=== PATIENT | female | born 1950 | race Caucasian/White ===

== ENCOUNTER → 2019-08-02 14:04 | Outpatient (CLI) | payer MEDICARE, MEDICAID, SELFPAY ==
--- NOTE | 2019-08-02 | DI.ECHO.S_ITS ---
[place] [facility]---------+ [facility] +---------+ : : [address] : : : : [id number] : : : : Phone: [phone] Echocardiogram Report + + :Name: ALANA DREW Study Date: 08/02/2019 Height: 65 in : :[facility] Weight: 350 lb : : Gender: Female BSA: 2.5 m2 : :: 1950 Age: 68 yrs BP: 122/68 mmHg: :Reason For Study: hypertension : :Ordering Physician: Kush Ferrera : :Liana Performed By: Hermila Ward : :Referring: KUSH GAINES : + + Interpretation Summary Technically difficult study limiting LV endothelial and valve visualization. 1) Normal left ventricular size, thickness, and systolic function (EF 60-65%). 2) Right ventricle is not well visualization but is appears to have mildly reduced function in suboptimal windows. 3) No significant valvular abnormalities. 4) The right ventricular systolic pressure is estimated to be at least 30 mmHg based on an estimated right atrial pressure of 3 mm Hg. 5) Compared to the Echo done 01/30/2018 @ [facility], RVSP has decreased from 48mmHg to 30mmHg. Procedure: A two-dimensional transthoracic echocardiogram with color flow and Doppler was performed. The study quality was technically difficult. A contrast injection of Definity was performed to improve assessment of LV function. The injection was performed through an intravenous line in the left arm. Definity contrast used after patient education and consent. Patient denied any symptoms following the use of Definity. The patient was in normal sinus rhythm during the exam. Left Ventricle: The left ventricle is normal in size and wall thickness. The ejection fraction is estimated to be 60-65%. Left ventricular systolic function is normal. There are no obvious focal wall motion abnormalities noted but poor endocardial definition reduces the sensitivity for the detection of such. Right Ventricle: The right ventricle is not well visualized. Right ventricular systolic function is mildly reduced. Atria: The left atrial size is normal. Right atrium not well visualized. Mitral Valve: The mitral valve leaflets appear mildly thickened, but open well. There is mild mitral annular calcification. Aortic Valve: The aortic valve is trileaflet. The aortic valve opens well. There is no aortic valve stenosis. No aortic regurgitation is present. Tricuspid Valve: The tricuspid valve is not well visualized. The right ventricular systolic pressure is estimated to be at least 30 mmHg based on an estimated right atrial pressure of 3 mm Hg. There is trace tricuspid regurgitation. Pulmonic Valve: The pulmonic valve is not well visualized. There is no pulmonic valvular regurgitation. Great Vessels: The aortic root is not well visualized. The ascending aorta could not be visualized. The aortic arch is normal in size. The IVC is of normal diameter and collapses greater than 50% with a sniff. This suggests a low right atrial pressure of 3 mm Hg. Pericardium/ Pleura There is no pericardial effusion. There is no pleural effusion. MMode/2D Measurements & Calculations LVIDd: 4.1 cm LVOT diam: 2.1 cm LVIDs: 2.9 cm Ao Arch Diam (Prox Trans): 2.8 cm FS: 27.8 % EPSS: 0.88 cm IVSd: 1.0 cm LVPWd: 0.95 cm LV perdomo. diameter/BSA (cm/m^2): 1.6 LV sys. diameter/BSA (cm/m^2): 1.2 LA A2 area: 19.1 cm2 TAPSE: 1.7 cm LA A4 area: 17.8 cm2 LA length (vol): 5.4 cm LA vol: 53.1 ml LA vol index: 21.2 ml/m2 Doppler Measurements & Calculations Ao V2 max: 123.5 cm/sec LVOT Max Souleymane: 101.6 cm/sec Ao V2 mean: 89.4 cm/sec LV V1 max P.1 mmHg Ao max P.1 mmHg LV V1 VTI: 14.6 cm Ao mean P.5 mmHg LUZ ELENA(I,D): 3.0 cm2 Ao V2 VTI: 17.6 cm LUZ ELENA(V,D): 3.0 cm2 sev ratio: 0.83 LUZ ELENA indexed to BSA (cm^2/m^2): 1.2 MV E max souleymane: 81.6 cm/sec TR max souleymane: 259.1 cm/sec MV A max souleymane: 84.3 cm/sec TR max P.8 mmHg MV E/A: 0.97 PA V2 max: 105.9 cm/sec Med Peak E' Souleymane: 6.6 cm/sec PA V2 mean: 66.0 cm/sec E/E' med: 12.3 PA mean P.1 mmHg Lat Peak E' Solueymane: 9.0 cm/sec PA pr(Accel): 37.9 mmHg E/E' lat: 9.1 E/e' average: 10.7 MV dec time: 0.24 sec SV(LVOT): 52.9 ml Reading Physician:06:05 PM
== END ==
PROVIDERS: Family Provider Physician Assistant; Referring Provider Internal Medicine Cardiovascular Disease; Visit Provider Internal Medicine Cardiovascular Disease
DX: I27.20 Pulmonary hypertension, unspecified (principal)
CPT/HCPCS: 93306; Q9957

== ENCOUNTER 2020-08-03 21:20 | Inpatient (IN) | payer MEDICARE, MEDICAID, SELFPAY ==
[2020-08-03] VITALS (10 sets, daily range): BP systolic 120–149; BP diastolic 73–83; PULSE 101–107; RESP 15–22; TEMP 36.8; O2SAT 93–97; BMI 62.4
--- NOTE | 2020-08-03 21:51 | DI.CT.S_ITS ---
PROCEDURE: CT ANGIO CHEST PE PROTOCOL INDICATIONS: sob TECHNIQUE: After the administration of intravenous contrast, 2 mm thick sections acquired from the pulmonary apices to the posterior costophrenic angles. 3-dimensional maximum intensity projection (MIP) coronal and sagittal reformats were then acquired through the thorax. For radiation dose reduction, the following was used: automated exposure control, adjustment of mA and/or kV according to patient size. COMPARISON: [facility], CT, CT ANGIO CHEST PE, 05/27/2015, 22:44. FINDINGS: Image quality: Limited given severe respiratory motion. Pulmonary arteries: Pulse is limited for evaluation of pulmonary embolus. The Hounsfield units within the main pulmonary artery are 128 Hounsfield units. There is no central pulmonary embolus. The main pulmonary artery is normal in caliber with likely mild dilation of the main pulmonary arteries measuring 2.6 centimeters on the right and 2.4 centimeters on the left which may be related to pulmonary hypertension. This is grossly unchanged from comparison. Lungs and pleura: Limited given severe respiratory motion. There is trace left-sided pleural fluid. There is predominantly dependent and basilar atelectasis and scattered densities. No pneumothorax. Low lung volumes. Mediastinum: Heart size is normal, without pericardial effusion. No evidence of right heart strain. Moderate multilevel coronary vascular calcifications. Mitral annular calcifications. Mildly prominent and slightly enlarged mediastinal lymph nodes with a right paratracheal lymph node measuring 1.0 centimeter in short axis diameter, unchanged. Thoracic aorta is normal in caliber and enhancement. Esophagus is normal in caliber, without hiatal hernia. Bones and chest wall: No suspicious bony lesions. Ribs and thoracic spine appear intact throughout. Thyroid gland is unremarkable. No axillary or supraclavicular adenopathy. Abdomen: Visualized upper abdominal solid organs appear normal in the early arterial phase of enhancement. Questionable mild intrahepatic ductal dilation. IMPRESSION: No central pulmonary embolus, however enhancement of the pulmonary arteries is inadequate for evaluation of pulmonary embolus along with severe respiratory motion artifact. Repeat examination in appropriate phase of imaging versus V/Q scan as clinically warranted. Scattered predominantly basilar densities most prominent in the left lower lobe likely representing atelectasis. Superimposed pneumonia not completely excluded. Trace left-sided pleural effusion. Questionable intrahepatic ductal dilation. Recommend correlation with lab values to exclude obstruction. Stable nonspecific mediastinal adenopathy. Moderate multi-vessel coronary vascular calcifications. No significant discrepancy from preliminary report. Dictated by: George Hernandez D.O. on 08/04/2020 at 7:17 Approved by: George Hernandez D.O. on 08/04/2020 at 7:29
[2020-08-03 22:07] LABS: Add Manual Diff / Slide Review NO; Basophils Absolute Auto 100 /uL (0-100); Basophils Percent Auto 0.4 % (0-2); Eosinophils Absolute Auto 400 /uL (0-450); Eosinophils Percent Auto 2.7 % (2-4); Hematocrit 38.5 % (36-46); Hemoglobin 12.4 g/dL (12.0-16.0); Lymphocytes Absolute Auto 1200 /uL (1100-4500); Lymphocytes Percent Auto 9.1 % (25-40); Mean Corpuscular HGB Conc 32.3 % (30-36); Mean Corpuscular Hemoglobin 29.7 PG (26-34); Monocytes Absolute Auto 1200 /uL (0-900); Monocytes Percent Auto 8.8 % (3-14); Neutrophils Absolute Auto 10400 /uL (1500-7000); Platelet Count 314 X10^3/uL (150-400); Red Blood Cell Count 4.18 X10^6/uL (4.0-5.2); Red Cell Distribution Width 13.8 % (11.6-14.8); White Blood Cell Count 13.2 X10^3/uL (4.5-11.0)
[2020-08-03 22:15] LABS: INR 1.2 (0.9-1.3); Prothrombin Time 13.1 SECONDS (10.1-12.7)
[2020-08-03 22:17] LABS: PTT Partial Thromboplastin Tim 37 SECONDS (26.4-36.2)
[2020-08-03 22:18] LABS: Lactate (Lactic Acid) 0.8 mmol/L (0.7-2.1)
[2020-08-03 22:19] LABS: Alanine Aminotransferase 32 IU/L (<35); Albumin 3.6 g/dL (3.5-5.0); Alkaline Phosphatase 136 U/L (38-126); Aspartate Aminotransferase 47 IU/L (14-36); BUN Creatinine Ratio 26.6 (6-22); Bilirubin Total 0.5 mg/dL (0.2-1.3); Blood Urea Nitrogen 21 mg/dL (7-17); Calcium 9.2 mg/dL (8.4-10.2); Carbon Dioxide 31 mmol/L (22-32); Chloride 105 mmol/L (98-107); Creatine Kinase 103 U/L (30-135); Estimated Glomerular Filt Rate > 60.0 mL/min (>60); Globulin 3.5 g/dL (1.7-4.1); Glucose 133 mg/dL (80-110); HEMOLYSIS < 15 (0-50); Magnesium 1.3 mg/dL (1.6-2.3); Sodium 139 mmol/L (137-145); Total Protein 7.1 g/dL (6.3-8.2)
[2020-08-03 22:20] LABS: Potassium 5.5 mmol/L (3.4-5.1)
--- NOTE | 2020-08-03 22:26 | ED.SOB ---
HPI - SOB/Dyspnea General Chief Complaint: Weakness Stated Complaint: Weakness Time Seen by Provider: 08/03/20 21:50 Source: patient and EMS Mode of arrival: EMS Limitations: no limitations History of Present Illness HPI Narrative: Patient is a 69-year-old female with multiple comorbidities including diabetes, morbid obesity presenting today with increasing cough and shortness of breath. [facility]. She is generally weak and had a fall yesterday. Says it is becoming more difficult for her to walk. She is certainly more sedentary. She is on home O2 for sleep apnea and COPD. She has not needed any more oxygen. She denies fever chills. But she does have a bronchospastic cough here in the emergency department. She is quite convinced that she has pneumonia again she denies fever or chills. She actually states that she has had this cough ongoing for 2 weeks. She does have AIDS and help at home. [facility] records report that social work was involved in her care looking at technician terminal and repeater care facilities for her. She certainly does not qualify from the emergency department. MD Complaint: shortness of breath Related Data Home oxygen amount: 3 liters Allergies Allergy/AdvReac Type Severity Reaction Status Date / Time cephalexin Allergy Verified 08/03/20 21:40 codeine Allergy Verified 08/03/20 21:41 morphine Allergy Verified 08/03/20 21:40 Penicillins Allergy Verified 08/03/20 21:35 Review of Systems Review of Systems ROS Unobtainable: All systems reviewed & are unremarkable except as noted in HPI and below Constitutional Constitutional: Denies chills, Denies fever(s), Denies frequent falls, Denies lethargy and Denies weakness ENT Ears, Nose, Mouth, and Throat: Denies dizziness Cardiovascular Cardiovascular: Denies chest pain, Denies syncope, Denies irregular heart rhythm, Denies lightheadedness, Denies palpitations, Reports dyspnea and Denies orthopnea Respiratory Respiratory: Reports cough and Reports dyspnea Gastrointestinal Gastrointestinal: Denies abdominal pain, Denies change in bowel habits, Denies diarrhea, Denies nausea and Denies vomiting Musculoskeletal Musculoskeletal: Denies back pain and Reports myalgias Integumentary/Breasts Skin/Breast: Denies pruritus, Denies erythema, Denies rash and Denies wounds Neurologic Neurologic: Denies dizziness, Denies syncope, Denies frequent falls and Denies weakness Endocrine Endocrine: Denies palpitations Patient History Medical History Anxiety CHF (congestive heart failure) COPD (chronic obstructive pulmonary disease) Depression GERD (gastroesophageal reflux disease) Hiatal hernia Hyperlipidemia Hypertension Migraine Osteoarthritis Peripheral neuropathy Sleep apnea Type 2 diabetes mellitus Social History household members: family Smoking Status: Former smoker alcohol intake: never Smoking Status: Never smoker Substance Use Type: does not use Exam Initial Vital Signs Initial Vital Signs: Vital Signs Respiratory Rate 22 08/03/20 21:26 Blood Pressure 130/83 08/03/20 21:26 GENERAL: Alert 69-year-old female coughing BMI 62 HEENT: Head atraumatic,EOMI, pupils reactive, face symmetric, moist mucous membranes CARDIOVASCULAR: Regular rate and rhythm without murmurs, rubs or gallops. RESPIRATORY: Breath sounds equal bilaterally, no wheezes rales or rhonchi. Bronchospastic cough ABDOMEN: Soft, nontender. Normoactive bowel sounds all 4 quadrants. No guarding or rebound. EXTREMITIES: Normal range of motion, no clubbing or edema. Neurovascularly intact NEUROLOGICAL: Alert and oriented x4. Normal speech Cranial nerves II through XII grossly intact. SKIN: Warm, dry, no laceration, no petechiae, no rashes or lesions. Course Orders Ordered: ED Orders 08/03/20 21:30 COVID19 - ADMIT (BAR PILOT swab/PCR) Stat 08/03/20 21:50 Consult to Respiratory Therapy Evaluate & Treat EKG-12 Lead Stat 08/03/20 21:51 CT angio chest PE protocol Stat 08/03/20 22:00 Complete Blood Count AUTO DIFF Stat Comprehensive Metabolic Panel Stat Lactate (Lactic Acid) Stat Magnesium Stat NT-proBNP (BNP-Adult 18+) Stat Partial Thromboplastin Time Stat Procalcitonin Stat Prothrombin Time INR Stat Troponin & CK Cardiac Panel Stat 08/03/20 22:12 Blood Culture Stat Acetaminophen (Acetaminophen 325 Mg Tablet) 650 mg PO Q6HR PRN PRN Reason: Fever/Mild Pain (1-3) Al Hydrox/Mg Hydrox/Simethicone (Mag Hydrox/Alum/Simeth 30 Ml Udc) 30 ml PO Q6HR PRN PRN Reason: Dyspepsia Albuterol (Albuterol 2.5 Mg/3 Ml Neb (Adult)) 2.5 mg INH [id number] PRN PRN Reason: Shortness Of Breath Or Wheezing Albuterol/Ipratropium (Albuterol/Ipratropium 3 Ml Ampul) 3 ml INH [id number] [facility] Amlodipine Besylate (Amlodipine 5 Mg Tablet) 5 mg PO DAILY [facility] Atorvastatin Calcium (Atorvastatin 20 Mg Tablet) 40 mg PO BEDTIME [facility] Bisacodyl (Bisacodyl 10 Mg Supp) 10 mg TX DAILY PRN PRN Reason: Constipation Budesonide (Budesonide 0.5 Mg/2 Ml Neb) 0.5 mg INH RTBID [facility] Calcium Carbonate (Calcium Carbonate 500 Mg Tab) 1,000 mg PO Q4HR PRN PRN Reason: Dyspepsia Docusate Sodium (Docusate 100 Mg Capsule) 100 mg PO BID [facility] Duloxetine HCl (Duloxetine 30 Mg Capsule) 60 mg PO DAILY [facility] Enoxaparin Sodium (Enoxaparin 40 Mg/0.4 Ml Syringe) 40 mg SUBCUT DAILY [facility] Furosemide (Furosemide 20 Mg/2 Ml Vial) 20 mg IV DAILY [facility] Guaifenesin (Guaifenesin Er 600 Mg Tab) 600 mg PO BID [facility] Magnesium Sulfate (Magnesium Sulfate) 2 gm in 50 mls @ 25 mls/hr IV NOW ONE Stop: 08/04/20 03:48 Azithromycin 500 mg/ Dextrose 250 mls @ 250 mls/hr IV Q24H LADY Stop: 08/06/20 02:46 Insulin Human Lispro (Insulin Lispro 100 Unit/Ml 3ml Vial) 0 unit SUBCUT ACHS [facility]; Protocol Lisinopril (Lisinopril 20 Mg Tablet) 20 mg PO DAILY [facility] Naloxone HCl (Naloxone 0.4 Mg/Ml Vial) 0.2 mg IV Q2MIN PRN PRN Reason: Opiate Reversal Nortriptyline HCl (Nortriptyline Hcl 25 Mg Capsule) 50 mg PO BEDTIME [facility] Ondansetron HCl (Ondansetron 4 Mg/2 Ml Inj) 4 mg IV Q8HR PRN PRN Reason: Nausea And Vomiting Pantoprazole Sodium (Pantoprazole 40 Mg Vial) 20 mg IV DAILY [facility] Discontinued Medications Albuterol/Ipratropium (Albuterol/Ipratropium 3 Ml Ampul) 3 ml INH NOW ONE Stop: 08/03/20 21:51 Last Admin: 08/03/20 23:20 Dose: 3 ml Documented by: JEANCARLOS Guaifenesin (Guaifenesin Er 600 Mg Tab) 600 mg PO Q12HR PRN PRN Reason: Cough Sodium Chloride (Normal Saline 0.9%) 1,000 mls @ 75 mls/hr IV CONT LADY Pantoprazole Sodium (Pantoprazole 40 Mg Vial) 40 mg IV DAILY LADY Vital Signs Vital signs: Vital Signs - 8 hr 08/03/20 21:26 08/03/20 21:27 08/03/20 21:29 Temperature 98.2 F Pulse Rate 107 H 104 H Respiratory Rate 22 22 Blood Pressure 130/83 121/76 Pulse Oximetry 93 93 08/03/20 21:30 08/03/20 21:31 08/03/20 22:00 Temperature Pulse Rate 104 H 106 H 105 H Respiratory Rate Blood Pressure 121/76 120/75 Pulse Oximetry 96 97 96 08/03/20 22:30 08/03/20 23:13 08/03/20 23:20 Temperature Pulse Rate 101 H 105 H 103 H Respiratory Rate 15 20 Blood Pressure 149/73 H Pulse Oximetry 96 94 95 08/03/20 23:30 08/04/20 00:00 08/04/20 00:30 Temperature Pulse Rate 103 H 102 H 113 H Respiratory Rate 22 26 H 30 H Blood Pressure Pulse Oximetry 94 94 MDM - SOB/Dyspnea Lab Data Attestation: I reviewed the patient's lab results. Result diagrams: 08/03/20 22:00 08/03/20 22:00 Labs: Lab Results 08/03/20 08/03/20 08/03/20 Range/Units 21:30 22:00 22:00 WBC 13.2 H (4.5-11.0) X10^3/uL RBC 4.18 (4.0-5.2) X10^6/uL Hgb 12.4 (12.0-16.0) g/dL Hct 38.5 (36-46) % MCV 92.0 (80-100) fL MCH 29.7 (26-34) PG MCHC 32.3 (30-36) % RDW 13.8 (11.6-14.8) % Plt Count 314 (150-400) X10^3/uL Neut % (Auto) 79.0 H (50-75) % Lymph % (Auto) 9.1 L (25-40) % Lares % (Auto) 8.8 (3-14) % Eos % (Auto) 2.7 (2-4) % Baso % (Auto) 0.4 (0-2) % Neut # (Auto) 43858 H (9811-7493) /uL Lymph # (Auto) 1200 (8208-7002) /uL Lares # (Auto) 1200 H (0-900) /uL Eos # (Auto) 400 (0-450) /uL Baso # (Auto) 100 (0-100) /uL PT 13.1 H (10.1-12.7) SECONDS INR 1.2 (0.9-1.3) APTT 37 H (26.4-36.2) SECONDS Sodium (137-145) mmol/L Potassium (3.4-5.1) mmol/L Chloride (98-107) mmol/L Carbon Dioxide (22-32) mmol/L BUN (7-17) mg/dL Creatinine (0.52-1.04) mg/dL Estimated GFR (>60) mL/min BUN/Creatinine Ratio (6-22) Glucose (80-110) mg/dL Lactate (0.7-2.1) mmol/L Calcium (8.4-10.2) mg/dL Magnesium (1.6-2.3) mg/dL Total Bilirubin (0.2-1.3) mg/dL AST (14-36) IU/L ALT (<35) IU/L Alkaline Phosphatase (38-126) U/L Total Creatine Kinase (30-135) U/L CK-MB (CK-2) (<2.37) ng/mL CK-MB (CK-2) Rel Index (1.5-5.0) % Troponin I (0.01-0.034) ng/mL NT-Pro-B Natriuret Pep (<125) pg/mL Total Protein (6.3-8.2) g/dL Albumin (3.5-5.0) g/dL Globulin (1.7-4.1) g/dL Albumin/Globulin Ratio (1.0-2.8) Procalcitonin (<0.5) ng/mL SARS-CoV-2 (PCR) Negative (Negative) 08/03/20 08/03/20 Range/Units 22:00 22:00 WBC (4.5-11.0) X10^3/uL RBC (4.0-5.2) X10^6/uL Hgb (12.0-16.0) g/dL Hct (36-46) % MCV (80-100) fL MCH (26-34) PG MCHC (30-36) % RDW (11.6-14.8) % Plt Count (150-400) X10^3/uL Neut % (Auto) (50-75) % Lymph % (Auto) (25-40) % Lares % (Auto) (3-14) % Eos % (Auto) (2-4) % Baso % (Auto) (0-2) % Neut # (Auto) (3802-7194) /uL Lymph # (Auto) (1901-8720) /uL Lares # (Auto) (0-900) /uL Eos # (Auto) (0-450) /uL Baso # (Auto) (0-100) /uL PT (10.1-12.7) SECONDS INR (0.9-1.3) APTT (26.4-36.2) SECONDS Sodium 139 (137-145) mmol/L Potassium 5.5 H (3.4-5.1) mmol/L Chloride 105 (98-107) mmol/L Carbon Dioxide 31 (22-32) mmol/L BUN 21 H (7-17) mg/dL Creatinine 0.79 (0.52-1.04) mg/dL Estimated GFR > 60.0 (>60) mL/min BUN/Creatinine Ratio 26.6 H (6-22) Glucose 133 H (80-110) mg/dL Lactate 0.8 (0.7-2.1) mmol/L Calcium 9.2 (8.4-10.2) mg/dL Magnesium 1.3 L (1.6-2.3) mg/dL Total Bilirubin 0.5 (0.2-1.3) mg/dL AST 47 H (14-36) IU/L ALT 32 (<35) IU/L Alkaline Phosphatase 136 H (38-126) U/L Total Creatine Kinase 103 (30-135) U/L CK-MB (CK-2) 1.33 (<2.37) ng/mL CK-MB (CK-2) Rel Index 1.3 L (1.5-5.0) % Troponin I < 0.012 (0.01-0.034) ng/mL NT-Pro-B Natriuret Pep 438 H (<125) pg/mL Total Protein 7.1 (6.3-8.2) g/dL Albumin 3.6 (3.5-5.0) g/dL Globulin 3.5 (1.7-4.1) g/dL Albumin/Globulin Ratio 1.0 (1.0-2.8) Procalcitonin 0.17 (<0.5) ng/mL SARS-CoV-2 (PCR) (Negative) Imaging Data CT scan - chest: Radiologist's Impression: Preliminary report. No gross central pulmonary embolism but inadequate enhancement of pulmonary arteries with severe respiratory motion artifact. Close follow-up inappropriate phase of imaging or V/Q scan is clinically indicated. Trace left pleural fluid. Scattered particulate dependent densities most prominent left lower lobe probably atelectasis superimposed pneumonia less likely but not excluded ECG Data Attestation: I personally reviewed and interpreted this ECG as follows: Prior ECG tracings: not available for review Interpretation: Sinus rhythm rate 106 p.r. interval 160 Q are S [address] changes or T-wave inversions MDM Narrative Medical decision making narrative: Patient states that she is unable to ambulate. She has had significant increase in weakness over the past couple of weeks weakness got much worse yesterday when she fell and was evaluated at [facility]. She says that she went home and laid in bed. She does have home healthcare they assisted her to the restroom without was only 1 time. She is unable to get up without assistance. 911 was called the medics helped her to the restroom before she came to the ED. attempted to get her to stand up in the emergency department was unsuccessful. At this time patient does not have 24 hour care at home. She will likely need long-term care facility. At this time no cause for her increasing shortness of breath or chronic cough. No sign of infection Pepito VALENZUELA updated patient's symptoms test results accepts patient for observation Discharge Plan Departure Patient Disposition: Admitted as Observation Clinical Impression: Chronic cough, Inability to walk Admit Date/Time: 08/04/20 00:58 Admit Provider: Sandor Cerna
[2020-08-03 22:31] LABS: NT-proBNP (BNP-Adult 18+) 438 pg/mL (<125); Troponin I < 0.012 ng/mL (0.01-0.034)
[2020-08-03 22:35] LABS: CKMB % Relative Index 1.3 % (1.5-5.0); Creatine Kinase MB 1.33 ng/mL (<2.37)
[2020-08-03 22:36] LABS: Procalcitonin 0.17 ng/mL (<0.5)
[2020-08-03 22:56] LABS: COVID19 - ADMIT (NP swab/PCR) Negative (Negative)
[2020-08-03] MEDS: ALBUTEROL/IPRATROPIUM 3 ML AMPUL INH (23:20)
[2020-08-04] VITALS (14 sets, daily range): BP systolic 123–175; BP diastolic 47–84; PULSE 101–113; RESP 14–30; TEMP 35.9–36.6; O2SAT 92–96; BMI 62.4
--- NOTE | 2020-08-04 01:43 | PM.HP.1 ---
History of Present Illness History of Present Illness Date Patient Seen: 08/04/20 Time Patient Seen: 01:58 Chief complaint: Weakness Narrative: Ms. Mayra Lara is a 69-year-old super morbidly obese female with a past medical history significant for COPD on home O2 at 3 liters/minute, congestive heart failure, SWATHI, type 2 diabetes with neuropathy, hypertension, hyperlipidemia, hiatal hernia, GERD, anxiety and depression presents to the ER with worsening cough and shortness of breath. The patient was seen at [facility] yesterday for cough and shortness of breath and discharged to home. Today the patient feels that she is more short of breath with worsening cough and weakness precipitating 2 recent falls. The patient has a home health aide that will help her at home. She called [facility] [place] fire Department responded get her to the toilet and subsequently to the ER at [facility] for further evaluation. The patient states that she is on home oxygen at 3 liters/minute is not required increasing flow. She endorses a cough that has been present for 2 weeks. The patient denies fevers or chills, headaches or dizziness, has no nasal congestion or sore throat. She denies chest pain or palpitations. She has shortness of breath at rest with dry nonproductive. She denies abdominal pain, changes in bowel or bladder habits. Upon arrival to the ER the patient has a temperature 98.2?, heart rate of 104, blood pressure 121/76 with a respirations of 22 saturating 96% on 4 liters/minute of oxygen. A chest CT is obtained which finds no gross pulmonary embolism however notes an adequate enhancement of pulmonary arteries with severe respiratory motion artifact. Trace left pleural fluid, scattered fatigue dependent densities was probably left lower lobe please to be atelectasis and less likely pneumonia. On laboratory analysis the patient has white count of 13.2 with elevated neutrophils at 10,400, hemoglobin is 4 and hematocrit is 38.5 and platelets are 314. She has a PT of 13 1, INR 1 2 and a PTT of 37. On chemistry has an elevated potassium of 5.5 elevated BUN at 21 with a creatinine 0.79 with a BUN creatinine ratio of 26.6. Her nonfasting glucose is 133. Her magnesium is 1.3. She has a total CK of 103 with a CK-MB of 1.334 index of 1.3. Her troponin is less than 0.012. She has an elevated proBNP at 438. Her procalcitonin is 0.17. Her COVID screening is negative. The patient is admitted to the hospital for exacerbation COPD and acute bronchitis and generalized weakness unable to return safely to her home setting. Patient History Medical History Anxiety Asthma CHF (congestive heart failure) COPD (chronic obstructive pulmonary disease) Depression GERD (gastroesophageal reflux disease) Hiatal hernia Hyperlipidemia Hypertension Migraine Osteoarthritis Peripheral neuropathy Sleep apnea Type 2 diabetes mellitus Surgical History (Updated 08/04/20 @ 03:00 by NICOLAS Hernandez) No history of previous surgery Family & Social History Family History (Updated 08/04/20 @ 03:02 by NICOLAS Hernandez) Father Cardiovascular disease Mother CVA (cerebral vascular accident) Brother Sepsis Safety & Behavioral: Feels Safe in Current Yes Environment Been Physically Hurt or No Threatened By a Person Tobacco & Substance use: Smoking Status Never smoker Substance Use Type does not use Meds Home Medications and Allergies Allergies Allergy/AdvReac Type Severity Reaction Status Date / Time cephalexin Allergy Verified 08/03/20 21:40 codeine Allergy Verified 08/03/20 21:41 morphine Allergy Verified 08/03/20 21:40 Penicillins Allergy Verified 08/03/20 21:35 Review of Systems Review of Systems ROS: Yes All systems reviewed with the patient and are negative except as otherwise documented Exam Vital Signs (past 8 hours): - 08/03/20 21:26 08/03/20 21:27 08/03/20 21:29 Temperature 98.2 F Pulse Rate 107 H 104 H Respiratory Rate 22 22 Blood Pressure 130/83 121/76 Pulse Oximetry 93 93 08/03/20 21:30 08/03/20 21:31 08/03/20 22:00 Temperature Pulse Rate 104 H 106 H 105 H Respiratory Rate Blood Pressure 121/76 120/75 Pulse Oximetry 96 97 96 08/03/20 22:30 08/03/20 23:13 08/03/20 23:20 Temperature Pulse Rate 101 H 105 H 103 H Respiratory Rate 15 20 Blood Pressure 149/73 H Pulse Oximetry 96 94 95 08/03/20 23:30 08/04/20 00:00 08/04/20 00:30 Temperature Pulse Rate 103 H 102 H 113 H Respiratory Rate 22 26 H 30 H Blood Pressure Pulse Oximetry 94 94 08/04/20 01:00 Temperature Pulse Rate 104 H Respiratory Rate 14 Blood Pressure Pulse Oximetry 94 Oxygen Delivery Method Nasal Cannula Oxygen Flow Rate 4 Narrative Exam Narrative: GENERAL APPEARANCE: well developed, super morbidly obese female, BMI 61. Who is hyperkinetic and restless with frequent wet cough. HEENT: Normocephalic, right eyelid ptosis, blind right eye, left pupil reactive, no sinus tenderness to percussion, no rhinorrhea, mucous membranes are moist and pink. NECK/THYROID: neck supple, no JVD, no thyromegaly, trachea midline. LYMPH NODES: no cervical or supraclavicular lymphadenopathy. SKIN: Rafael Pena, warm and dry, no visible rashes HEART: Regular rhythm with tachycardic rate, S1-S2, no murmur, no rubs or gallops, brisk capillary refill, no pedal edema LUNGS: Breath sounds globally diminished, central coarseness without basilar crackles, no wheezing, frequent coarse cough. CHEST: Symmetrical movement, no accessory muscle use, shallow tidal volume, no pain on AP or lateral compression. ABDOMEN: Soft, protuberant, obese, nontender to palpation, no palpable organomegaly, exam limited by body habitus, no flank or suprapubic tenderness, active bowel tones. EXTREMITIES: Distal CMS intact, dorsi plantar flexion symmetrical, lower leg strength is 2/5, no deformities or joint effusions, clubbing without cyanosis. 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 PSYCH: Mildly agitated, restless, hyperkinetic, selectively cooperative, stable behavior. Objective Labs Result Diagrams: 08/03/20 22:00 08/04/20 05:17 Labs: Laboratory Results - last 24 hr 08/03/20 08/03/20 08/03/20 21:30 22:00 22:00 WBC 13.2 H RBC 4.18 Hgb 12.4 Hct 38.5 MCV 92.0 MCH 29.7 MCHC 32.3 RDW 13.8 Plt Count 314 Neut % (Auto) 79.0 H Lymph % (Auto) 9.1 L Drew % (Auto) 8.8 Eos % (Auto) 2.7 Baso % (Auto) 0.4 Neut # (Auto) 75067 H Lymph # (Auto) 1200 Drew # (Auto) 1200 H Eos # (Auto) 400 Baso # (Auto) 100 PT 13.1 H INR 1.2 APTT 37 H Sodium Potassium Chloride Carbon Dioxide BUN Creatinine Estimated GFR BUN/Creatinine Ratio Glucose Lactate Calcium Magnesium Total Bilirubin AST ALT Alkaline Phosphatase Total Creatine Kinase CK-MB (CK-2) CK-MB (CK-2) Rel Index Troponin I NT-Pro-B Natriuret Pep Total Protein Albumin Globulin Albumin/Globulin Ratio Procalcitonin SARS-CoV-2 (PCR) Negative 08/03/20 08/03/20 22:00 22:00 WBC RBC Hgb Hct MCV MCH MCHC RDW Plt Count Neut % (Auto) Lymph % (Auto) Drew % (Auto) Eos % (Auto) Baso % (Auto) Neut # (Auto) Lymph # (Auto) Drew # (Auto) Eos # (Auto) Baso # (Auto) PT INR APTT Sodium 139 Potassium 5.5 H Chloride 105 Carbon Dioxide 31 BUN 21 H Creatinine 0.79 Estimated GFR > 60.0 BUN/Creatinine Ratio 26.6 H Glucose 133 H Lactate 0.8 Calcium 9.2 Magnesium 1.3 L Total Bilirubin 0.5 AST 47 H ALT 32 Alkaline Phosphatase 136 H Total Creatine Kinase 103 CK-MB (CK-2) 1.33 CK-MB (CK-2) Rel Index 1.3 L Troponin I < 0.012 NT-Pro-B Natriuret Pep 438 H Total Protein 7.1 Albumin 3.6 Globulin 3.5 Albumin/Globulin Ratio 1.0 Procalcitonin 0.17 SARS-CoV-2 (PCR) Assessment & Plan Assessment & Plan narrative: 69-year-old super morbidly obese female with a past medical history significant for COPD on home O2 at 3 liters/minute, congestive heart failure, SWATHI, type 2 diabetes with neuropathy, hypertension, hyperlipidemia, hiatal hernia, GERD, anxiety and depression presents to the ER with worsening cough and shortness of breath. The patient is afebrile with mild elevation white count with neutrophils 10,400 and negative procalcitonin 0.17. Cardiac evaluation is negative save for a elevated proBNP of 438 with a history of CHF. Most recent echocardiogram was 08/02/2019 at which time she had EF of 60-65% and notable comment regarding reduction of PA systolic pressures reduced from 48 to 30 1. Exacerbation COPD, acute bronchitis, present on admission, active -chronic cough worsening over the last 2 weeks, afebrile, breath sounds globally diminished with central coarseness. -chest imaging is limited related to motion artifact but shows no PE or definitive pneumonia. Patient is afebrile and procalcitonin is 0.17. Obtain an arterial blood gas and a respiratory panel. -patient's hypo magnesium with magnesium of 1.3. Will give 2 g magnesium IV which will likely improve respiratory status. -ordered albuterol nebulizer every 2 hours as needed and albuterol Atrovent every 6 hours as needed. -oxygen 3 liters/minute to titrate to pulse ox between 88 and 92%. -requested respiratory therapy consult to evaluate and treat with history of COPD, CHF in sleep apnea. Ordered CPAP for RT protocol. 2. Low magnesium, present on admission, active. -ordered 2 g magnesium IV. -will recheck magnesium level in the morning. 3. Generalized weakness, present on admission, active. -patient reports progressive weakness and today is unable to ambulate. Patient is unable to return to home care setting living with her sister with intermittent home health aide help. -mobility is compromised a bilateral knee osteoarthritis, patient describes is [id number] and higher risk for fall related to peripheral diabetic neuropathy. -requested PT and OT to consult evaluate and treat. 3. Insulin-dependent diabetes type 2 with neuropathy, chronic, stable. -serum glucose is 133 on admission. -ordered fingerstick blood sugar checks a.c. and HS, ordered low-dose correctional insulin. -will obtain hemoglobin A1c. 4. Chronic congestive heart failure, probable cor pulmonale, chronic, stable. -imaging that was obtained does not identify pulmonary edema. No peripheral edema noted, troponin less than 0.012 and proBNP is 438. -echocardiogram of 08/02/2019 reveals an EF of 60-65 with a decrease in pulmonary artery pressures from 48-30 consistent with a pulmonary artery hypertension secondary to COPD. -will continue Lasix 20 mg daily. 5. GERD, chronic, stable. -patient takes omeprazole 20 mg daily, ordered pantoprazole 20 mg daily 1st dose now. 6. Super morbid obesity with a BMI of 62.5. -obesity complicating care of diabetes, osteoarthritis, impaired mobility resulting in increased work of breathing, heart healthy VTE prophylaxis: Enoxaparin IV fluid: Saline lock Diet: Small consistent carbohydrate, heart healthy Code status: Full code, patient designates her sister to be her surrogate decision maker. The patient is admitted to the hospital due to the severity of her respiratory symptoms as well as inability to return to home setting safely due to weakness and previous falls. The patient is admitted to the hospital observation status with expected length of stay to be less than 2 midnights. Scores GCS Weed coma scale eye opening: Spontaneous Weed coma scale verbal response: Orientated Weed coma scale motor response: Obey commands Weed coma scale total score: 15 Quality MIPS - Admit I confirm the patient?s Advance Care Plan is present, Code status is documented, Surrogate decision maker is in patient?s record [If Yes, STOP here]: Yes
[2020-08-04 02:49] LABS: HCO3 VBG 28 mmol/L (23-28); Oxygen Saturation VBG 47 % (70-75); PCO2 VBG 55.9 mmHg (45-50); PO2 VBG 29 mmHg (35-45); Total CO2 VBG 30 mmol/L (24-29); pH VBG 7.31 (7.33-7.43)
[2020-08-04] MEDS: PANTOPRAZOLE 40 MG VIAL 20 MG IV ×2 (02:51→09:34)
[2020-08-04] MEDS: MAGNESIUM SULFATE 2 GM/50 ML PIGGYBACK IV (02:51)
[2020-08-04 05:00] LABS: Adenovirus Not Detected (Not Detect); B. parapertussis Not Detected (Not Detecte); Bordetella pertussis Not Detected (Not Detecte); Chlamydophila pneumoniae Not Detected (Not Detect); Coronavirus 229E Not Detected (Not Detect); Coronavirus HKU1 Not Detected (Not Detect); Coronavirus NL 63 Not Detected (Not Detect); Coronavirus OC43 Not Detected (Not Detect); Human Metapneumovirus Not Detected (Not Detect); Human Rhinovirus/Enterovirus Not Detected (Not Detect); Influenza A Not Detected (Not Detect); Influenza B Not Detected (Not Detect); Mycoplasma pneumoniae Not Detected (Not Detect); Parainfluenza Virus 1 Not Detected (Not Detect); Parainfluenza Virus 2 Not Detected (Not Detect); Parainfluenza Virus 3 Not Detected (Not Detect); Parainfluenza Virus 4 Not Detected (Not Detect); Respiratory Syncytial Virus Not Detected (Not Detect); SARS- CoV-2 Not Detected (Not Detecte)
[2020-08-04] MEDS: AZITHROMYCIN 500 MG in DEXTROSE 5% IN WATER 250 ML IV (05:41)
[2020-08-04 06:01] LABS: BUN Creatinine Ratio 24.3 (6-22); Blood Urea Nitrogen 18 mg/dL (7-17); Calcium 9.1 mg/dL (8.4-10.2); Carbon Dioxide 28 mmol/L (22-32); Chloride 105 mmol/L (98-107); Cholesterol 123 mg/dL (140-199); Estimated Glomerular Filt Rate > 60.0 mL/min (>60); Glucose 123 mg/dL (80-110); HDL Cholesterol 43 mg/dL (40-60); HEMOLYSIS < 15 (0-50); LDL Cholesterol Calculated 64 mg/dL (<100); Magnesium 1.6 mg/dL (1.6-2.3); Potassium 5.3 mmol/L (3.4-5.1); Sodium 136 mmol/L (137-145); Triglycerides 78 mg/dL (35-150)
[2020-08-04 06:06] LABS: Hemoglobin A1C% w Est Avg Glu 7.5 % (4.0-6.0)
--- NOTE | 2020-08-04 06:38 | PC.NURSE ---
Addendum entered by Annie Mendez R.N. 08/04/20 06:58: pt was reassessed about 20 mins later, no complaints of pain and no swelling at IV site, pt is sleeping now. Original Note: pt arived on the floor around 0130 today complaining of weakness in her legs and a dry cough that comes and goes. pt's home meds were sent to pharmacy, pt agreeable. pt was seen by provider and orders placed for IV antibiotics. IV azithromycin was started around 0545 and then about 20 or 30 mins later the pt was complaining of pain near IV site. No visual redness was seen by nurse and IV was stopped and NS flushed. Nurse placed a warm wash cloth on arm and antibiotics were started again per charge nurse, pt was advised to call if pain starts again.
[2020-08-04] MEDS: ALBUTEROL/IPRATROPIUM 3 ML AMPUL INH ×3 (07:58→20:08)
[2020-08-04] MEDS: BUDESONIDE 0.5 MG/2 ML NEB INH ×2 (08:04→20:08)
--- NOTE | 2020-08-04 09:12 | PT.IIE ---
Surgical History (Last Updated 08/04/20 @ 03:00 by NICOLAS Hernandez) No history of previous surgery Medical History (Last Reviewed 08/04/20 @ 03:00 by NICOLAS Hernandez) Anxiety Asthma CHF (congestive heart failure) COPD (chronic obstructive pulmonary disease) Depression GERD (gastroesophageal reflux disease) Hiatal hernia Hyperlipidemia Hypertension Migraine Osteoarthritis Peripheral neuropathy Sleep apnea Type 2 diabetes mellitus Physical Therapy Inpatient Evaluation/Re-Eval M1 PT/OT-IP Prior Functional Status Start: 08/04/20 09:40 Freq: NEEDED Status: Active Protocol: Document 08/04/20 09:12 AB (Rec: 08/04/20 11:14 AB [id number]) Medical Review Prior Functional Status Medical History Reviewed Yes Communication able to make needs known Mobility and Gait stated that 2 weeks ago, she was able to do bed mobility and ambulated to the lift recliner using 4WW by herself. does not use the toilet but has a bedside commode due to space restrictions in the toilet. uses a power w/c for outdoor mobility and does not ambulate much other than bed to ther lift chair. Activities of Daily Living and IADL's stated that she is able to get dressed by herself but needs assist socks/shoes but able to human services case manager her underwear/pants in seated position. requires toileting needs using a bedside commode. stated that her sister assists her when needed if her caregiver is not around for toileting but her sister does not really willing to assist. stated that her caregiver gives her bed baths since she cannot use the bathroom due to space issue. Social History Household Members family Living Arrangements Apartment/Condo Number of Floors (Floors) One Floor Number of Stairs To Enter/Railing? no steps to enter Home Equipment Four Wheel Walker,Power Wheelchair/Scooter,Bedside Commode,Lift Recliner,Hospital Bed Additional Social History Comment has a caregiver that comes in 2 hours in the morning and 2 hours at night daily has a hospital bed with half rails on B sides M2 PT-IP Current Condition Start: 08/04/20 09:40 Freq: NEEDED Status: Active Protocol: Document 08/04/20 09:12 AB (Rec: 08/04/20 11:34 AB [email or web address]) Physical Therapy Current Condition Current Condition Evaluation Date 08/04/20 Treatment Diagnosis COPD exacerbation; difficulty in walking Onset Date 08/04/20 Precautions Other Precautions falls M3 PT-IP Subjective Start: 08/04/20 09:40 Freq: NEEDED Status: Active Protocol: Document 08/04/20 09:12 AB (Rec: 08/04/20 11:34 AB [email or web address]) Subjective Physical Therapy Visit Type Type Initial Evaluation Visit Start Time 09:12 Visit Stop Time 10:45 Total Visit Minutes 53 Notes pt seen for split visits: 912 to 930 am and 1010 to 1045 am Number of BLOW MOLD OPERATOR Visits 0 Physical Therapy Visit Comments Patient Comments pt is agreeable to do PT Therapy Pain Assessment Pain When Pain Assessed At Rest Location Bilateral Knee Intensity 10 Scale Used 10+ pain on B knees Pain Management Techniques Distraction,Modification of Treatment,Re-positioning, Timing of Activity with Medications M4 PT-IP Mobility and Gait Start: 08/04/20 09:40 Freq: NEEDED Status: Active Protocol: Document 08/04/20 09:12 AB (Rec: 08/04/20 11:34 AB [email or web address]) PT-Bed Mobility Assessment Supine to Sit Supine to Sit Maximum Assistance,Total Assistance,2 Person Assistance ,Head of Bed Elevated,Bedrails Sit to Supine Sit to Supine Maximum Assistance,Total Assistance,2 Person Assistance ,Bedrails Scooting Scooting to Edge of Bed Dependent PT-Transfer Assessment Comments Mobility Comments pt with (+) SOB during PT session but O2 sat at 93-94% with O2 on. completed supine to sit max A x 2 to total A x 2 and max cues HOB elevated and pt used bed rails to assist. required total A x 2 for scooting to EOB. pt refused to do standing but tolerated ~ 5 min of sitting on EOB and requested to go back to bed. completed sit to supine max A x 2 to total A x2 and max cues . total A x 2 for positioning in bed. call light and table placed within reach. Gait Assessment Comments Gait Comments unable at this time PT-Balance Assessment Sitting Balance and Reactions Static Sitting Balance Ability Good Dynamic Sitting Balance Ability Good M5 PT-IP Objective Assessments Start: 08/04/20 09:40 Freq: NEEDED Status: Active Protocol: Document 08/04/20 09:12 AB (Rec: 08/04/20 11:34 AB [email or web address]) Orientation Orientation/Cognition Level of Alertness Alert Orientation Name,Place,Situation Language Function Ability No Deficits Noted Safety Awareness Understands Safety Issues Memory Description No Deficits Noted Gross Range of Motion Lower Extremity ROM Impairments pain limiting mobility Strength Lower Extremity Strength Assessment Bilaterally Impaired Muscle Tone Muscle Tone WNL Yes M6 PT-IP Treatment Start: 08/04/20 09:40 Freq: NEEDED Status: Active Protocol: Document 08/04/20 09:12 AB (Rec: 08/04/20 11:34 AB [email or web address]) Physical Therapy Treatment Education Education Provided Safety M7 PT-IP Assessment and Plan Start: 08/04/20 09:40 Freq: NEEDED Status: Active Protocol: Document 08/04/20 09:12 AB (Rec: 08/04/20 11:34 AB [email or web address]) PT Summary Assessment and Plan Potential Rehabilitation Potential Fair Status of Condition at Evaluation Evolving Summary Impairments Pain,ROM,Strength,Balance, Coordination,Sensation,Bed Mobility,Transfers,Gait, Activity Tolerance Assessment Summary pt requiring max A x 2 to total X 2 with bed mobility and unable to stand up and ambulate at this time. pt will require SNF rehab to improve strength and mobility. Goals Bed Mobility Goal Moderate Assistance Transfer Goal Moderate Assistance,Front Wheeled Walker Gait Goal Moderate Assistance,Front Wheel Walker Gait Distance 15 Days to Meet Goals 10 Frequency of Treatment Frequency Of Treatment Once a Day Treatment Plan Physical Therapy Treatment Plan Bed Mobility Training,Transfer Training,Gait Training, Therapeutic Exercise,Balance Retraining,Discharge Planning, Hot or Cold Pack,Neuromuscular Re-ed,Coordination Retraining ,Manual Therapy Precautions Other Precautions falls Recommendations To Nursing Amount of Assist Needed Mechanical Lift Discharge Recommendations PT Discharge Recommendations SNF Rehab Transportation Needs at Discharge Stretcher/Ambulance
[2020-08-04] MEDS: INSULIN LISPRO 100 UNIT/ML 3ML VIAL SUBCUT ×4 (09:32→20:36)
[2020-08-04] MEDS: DULOXETINE 30 MG CAPSULE 60 MG PO (09:35)
[2020-08-04] MEDS: AMLODIPINE 5 MG TABLET PO (09:36)
[2020-08-04] MEDS: GABAPENTIN 300 MG CAPSULE PO ×2 (09:36→20:39)
[2020-08-04] MEDS: guaiFENesin ER 600 MG TAB PO ×2 (09:36→20:39)
[2020-08-04] MEDS: lisinopriL 20 MG TABLET PO (09:36)
[2020-08-04] MEDS: DOCUSATE 100 MG CAPSULE PO (09:36)
[2020-08-04] MEDS: FUROSEMIDE 20 MG/2 ML VIAL IV (09:37)
[2020-08-04] MEDS: ENOXAPARIN 40 MG/0.4 ML SYRINGE SUBCUT ×2 (09:37→20:39)
[2020-08-04] MEDS: NYSTATIN POWDER 15GM 1 APPLIC TOP ×2 (09:38→20:39)
--- NOTE | 2020-08-04 10:44 | OT.IP.EVAL ---
Past Medical History (Last Reviewed 08/04/20 @ 03:00 by NICOLAS Hernandez) Anxiety Asthma CHF (congestive heart failure) COPD (chronic obstructive pulmonary disease) Depression GERD (gastroesophageal reflux disease) Hiatal hernia Hyperlipidemia Hypertension Migraine Osteoarthritis Peripheral neuropathy Sleep apnea Type 2 diabetes mellitus Surgical History (Last Updated 08/04/20 @ 03:00 by NICOLAS Hernandez) No history of previous surgery Occupational Therapy Inpatient Evaluation/Re-Eval M1 PT/OT-IP Prior Functional Status Start: 08/04/20 09:40 Freq: NEEDED Status: Active Protocol: Document 08/04/20 13:02 CGR (Rec: 08/04/20 13:14 CGR [id number]) Medical Review Prior Functional Status Medical History Reviewed Yes Communication able to make needs known Mobility and Gait stated that 2 weeks ago, she was able to do bed mobility and ambulated to the lift recliner using 4WW by herself. does not use the toilet but has a bedside commode due to space restrictions in the toilet. uses a power w/c for outdoor mobility and does not ambulate much other than bed to ther lift chair. Activities of Daily Living and IADL's stated that she is able to get dressed by herself but needs assist socks/shoes but able to administrative manager her underwear/pants in seated position. requires toileting needs using a bedside commode. stated that her sister assists her when needed if her caregiver is not around for toileting but her sister is not really willing to assist. stated that her caregiver gives her bed baths since she cannot use the bathroom due to space issue. Social History Household Members family Living Arrangements Apartment/Condo Number of Floors (Floors) One Floor Number of Stairs To Enter/Railing? no steps to enter Home Environment Tub/Shower Home Equipment Four Wheel Walker,Power Wheelchair/Scooter,Bedside Commode,Lift Recliner,Hospital Bed Additional Social History Comment has a caregiver that comes in 2 hours in the morning and 2 hours at night daily has a hospital bed with half rails on B sides M1 PT/OT-IP Prior Functional Status Start: 08/04/20 13:01 Freq: NEEDED Status: Active Protocol: Document 08/04/20 13:02 CGR (Rec: 08/04/20 13:14 CGR [id number]) Medical Review Prior Functional Status Medical History Reviewed Yes Communication able to make needs known Mobility and Gait stated that 2 weeks ago, she was able to do bed mobility and ambulated to the lift recliner using 4WW by herself. does not use the toilet but has a bedside commode due to space restrictions in the toilet. uses a power w/c for outdoor mobility and does not ambulate much other than bed to ther lift chair. Activities of Daily Living and IADL's stated that she is able to get dressed by herself but needs assist socks/shoes but able to administrative manager her underwear/pants in seated position. requires toileting needs using a bedside commode. stated that her sister assists her when needed if her caregiver is not around for toileting but her sister is not really willing to assist. stated that her caregiver gives her bed baths since she cannot use the bathroom due to space issue. Social History Household Members family Living Arrangements Apartment/Condo Number of Floors (Floors) One Floor Number of Stairs To Enter/Railing? no steps to enter Home Environment Tub/Shower Home Equipment Four Wheel Walker,Power Wheelchair/Scooter,Bedside Commode,Lift Recliner,Hospital Bed Additional Social History Comment has a caregiver that comes in 2 hours in the morning and 2 hours at night daily has a hospital bed with half rails on B sides M2 OT-IP Current Condition Start: 08/04/20 13:01 Freq: Status: Active Protocol: Document 08/04/20 13:02 CGR (Rec: 08/04/20 13:14 [facility] [id number]) Occupational Therapy Current Condition Current Condition Evaluation Date 08/04/20 Treatment Diagnosis generalized weakness, COPD exacerbation Diagnosis Onset Date 08/04/20 M3 OT- IP Subjective and Pain Start: 08/04/20 13:01 Freq: Status: Active Protocol: Document 08/04/20 13:02 CGR (Rec: 08/04/20 13:14 [facility] [id number]) OT- Subjective Occupational Therapy Visit Type Type Initial Evaluation Visit Start Time 10:16 Visit Stop Time 10:44 Total Visit Minutes 28 Notes Co-treat with P.T. OT Pain Assessment Pain When Pain Assessed At Rest Pain Present Pain Present Pain Reported Location Bilateral Knee Intensity 10 Scale Used Numeric (0 - 10) Management Techniques Distraction,Modification of Treatment,Re-positioning M4 OT- IP ADL's Start: 08/04/20 13:01 Freq: Status: Active Protocol: Document 08/04/20 13:02 CGR (Rec: 08/04/20 13:14 CGR [id number]) OT [id number] Comments OT Self-Feeding Comments Not meal time OT ADL-Grooming Comments OT Grooming Comments Pt declined to perform OT ADL-Oral Care Comments Oral Care Comments Pt declined to perform OT ADL-Dressing General Eval Upper Body Dressing Ability Moderate Assistance Comments OT Dressing Comments Mod a to don bariatric gown OT ADL-Toileting General Evaluation Toileting Ability Total Assistance Areas Needing Assistance Manage Clothing,Perform Perineal Hygiene Comments OT Toileting Comments Pt had BM in bed prior to session and during session. OT ADL-Bathing Comments OT Bathing Comments Not performed M5 OT- IP IADL's Start: 08/04/20 13:01 Freq: Status: Active Protocol: Document 08/04/20 13:02 CGR (Rec: 08/04/20 13:14 CGR [id number]) OT-Instrumental Activities of Daily Living Deficits IADL Deficits Identified Deficits Home Safety Awareness Awareness of Need for Assistance at Home Good Awareness Ability to Problem Solve Emergency Able to Problem Solve Situations Medication Management Medication Management Caregiver Administers Money Management Money Management Caregiver Provides Assistance Meal Preparation Meal Preparation Caregiver Provides Assist Real Estate Firm Manager Real Estate Firm Manager Caregiver Provides Assist Driving Driving Comments Pt does not drive M6 OT- IP Functional Cognition Start: 08/04/20 13:01 Freq: Status: Active Protocol: Document 08/04/20 13:02 CGR (Rec: 08/04/20 13:14 CGR [id number]) Cognitive Factors Limiting Selfcare Function Cognitive Ability Level of Alertness Alert Patient Orientation Name,Age,Birthday,Month,Date, Year,Day of Week,Place, Situation Attention Span Ability Capable of Focused Attention, Unable to Sustain Attention Ability to Follow Commands Able to Follow One Step Commands with Increased Time, Able to Follow One Step Commands with Repetition Cognitive Comments Cognitive Assessment Comments Pt appears cognitively intact but flustered on this date. 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 M7 OT- IP Mobility and Balance Start: 08/04/20 13:01 Freq: Status: Active Protocol: Document 08/04/20 13:02 CGR (Rec: 08/04/20 13:14 CGR [id number]) OT- Bed Mobility Assessment Rolling Type of Rolling Roll to Left Level of Assistance Maximum Assistance,Total Assistance,1 Person Assistance Supine to Sit Supine to Sit Assist Maximum Assistance,Total Assistance,2 Person Assistance Sit to Supine Sit to Supine Assist Maximum Assistance,Total Assistance,2 Person Assistance Scooting Scooting to Edge of Bed Maximum Assistance,Total Assistance,2 Person Assistance Scooting Up and Down in Bed Maximum Assistance,Total Assistance,2 Person Assistance OT-Transfer Assessment Comments Mobility Comments Pt unable to stand at this time. OT- Balance Assessment Sitting Balance and Reactions Static Sitting Balance Ability Fair Dynamic Sitting Balance Ability Fair M8 OT- IP Objective Assessments Start: 08/04/20 13:01 Freq: Status: Active Protocol: Document 08/04/20 13:02 CGR (Rec: 08/04/20 13:14 CGR [id number]) OT Gross Range of Motion Upper Extremity Range of Motion Assessment Bilaterally Impaired ROM Impairments B shlds with reported rotator cuff tears. Painful above 45 degrees OT Strength Upper Extremity Strength Assessment Within Functional Limits Comments Strength Comments shld not tested but pt is 4+/5 to arms and hands dispite pain to the R thumb area d/t arthritis. OT- Coordination Assessment Upper Extremity Finger to Nose Test Within Functional Limits Finger Tapping Test Within Functional Limits OT-Muscle Tone Assessment Muscle Tone WNL Yes OT Sensation Assessment Edema Edema Absent M9 OT- IP Assessment and Plan Start: 08/04/20 13:01 Freq: Status: Active Protocol: Document 08/04/20 13:02 CGR (Rec: 08/04/20 13:14 CGR [id number]) OT Summary Assessment and Plan Potential Rehabilitation Potential Good Analytic Complexity at Evaluation High Summary OT Impairments Pain,Range of Motion,Strength, Balance,Functional Mobility, Grooming,Dressing,Toileting, Bathing,Toilet Transfers, Shower Transfers,Activity Tolerance Progress Towards Goals Slow Progress due to Pain,Slow Progress due to Medical Issues Assessment Summary Pt presents as a high complexity evaluation s/p admit for generalized weakness and COPD exacerbation. Pt was able to maintain O2 stats in the 90s with all activities on 2L but was limited on her mobility d/t pain. Pt will need SNF upon discharge. Goals Grooming Goal Independent Dressing Goal Independent,Zoo Director,Sock Aid Toileting Goal Minimal Assistance Toilet Transfer Goal Independent Days to Meet Goals 30 Frequency of Treatment Frequency Of Treatment Once a Day Treatment Plan OT Treatment Plan ADL Training,Functional Mobility,Therapeutic Exercises ,Patient/Family Education, Discharge Planning Other Treatment Recommendations and Next seated ADLs Treatment Focus Discharge Recommendations OT Discharge Recommendations SNF Rehab Transportation Needs at Discharge Wheelchair/Cabulance
[2020-08-04] MEDS: predniSONE 20 MG TABLET PO (11:27)
[2020-08-04] MEDS: BENZONATATE 100 MG CAPSULE PO ×2 (12:34→21:58)
--- NOTE | 2020-08-04 14:43 | CM.IDA ---
Initial DCP Assessment Note Patient is a 69 yo female, resident of [place]. Patient presents w/weakness , patient seen at [facility] yesterday, sent home, returns to ER after two falls at home. PCP: Lili Pope Payer: MCR/SHIRA According to RN, patient requiring total assist today and is luis lift only, incontinent today, patient states this is not baseline. Therapy note indicates 2 weeks ago, patient was able to do bed mobility and ambulated to her lift recliner using her 4WW, on her own. Patient uses a BSC next to her bed, uses a power w/c for outdoor mobility and does not ambulate much except from bed to her lift chair. SNF is recommended. Patient made an inpatient today per [facility] ALEX Marley Met w/patient to introduce role and review DCP. Patient states she lives at home w/her sister, has no DPOA. Patient has [facility] caregivers M-F (sometimes Thursday for transport) 4 hours daily. [facility]IAN CM is Melia Maddox. Discussed need for SNF d/t inability to care for self at home and patient refusing today, states she has spent time at [facility] and what used to be called [facility] (x4 years) and would like to return home. This RUG LAYER asks how patient will return home if she cannot get up from her bed, currently luis lift and incontinent? Patient states she needs to speak w/her sister. This RUG LAYER strongly encouraged patient to either come up w/DCP w/sister or reconsider SNF stay before return home and patient agreed to contact sister this evening to review options. Updated ALEX Wang. Alice Seaman, JAMES
[2020-08-04] MEDS: INSULIN GLARGINE 100 UNIT/ML 3ML PEN 60 UNIT SUBCUT (20:38)
[2020-08-04] MEDS: NORTRIPTYLINE HCL 25 MG CAPSULE 50 MG PO (20:39)
[2020-08-04] MEDS: ATORVASTATIN 20 MG TABLET 40 MG PO (20:39)
--- NOTE | 2020-08-04 21:13 | RT ---
Pt refused hospital CPAP machine at 2006. RN aware.
[2020-08-05] VITALS (10 sets, daily range): BP systolic 109–149; BP diastolic 60–100; PULSE 67–113; RESP 14–22; TEMP 35.6–36.7; O2SAT 92–97
[2020-08-05] MEDS: AZITHROMYCIN 500 MG in DEXTROSE 5% IN WATER 250 ML IV (03:45)
[2020-08-05] MEDS: BUDESONIDE 0.5 MG/2 ML NEB INH ×2 (07:50→20:12)
[2020-08-05] MEDS: ALBUTEROL/IPRATROPIUM 3 ML AMPUL INH ×3 (07:50→20:12)
[2020-08-05] MEDS: INSULIN LISPRO 100 UNIT/ML 3ML VIAL SUBCUT ×4 (08:21→20:15)
[2020-08-05] MEDS: NYSTATIN POWDER 15GM 1 APPLIC TOP (08:33)
[2020-08-05] MEDS: ENOXAPARIN 40 MG/0.4 ML SYRINGE SUBCUT ×2 (08:34→20:54)
[2020-08-05] MEDS: DULOXETINE 30 MG CAPSULE 60 MG PO (08:34)
[2020-08-05] MEDS: FUROSEMIDE 20 MG TABLET PO (08:35)
[2020-08-05] MEDS: PANTOPRAZOLE DR 20 MG TABLET PO (08:35)
[2020-08-05] MEDS: GABAPENTIN 300 MG CAPSULE PO ×2 (08:35→20:13)
[2020-08-05] MEDS: AMLODIPINE 5 MG TABLET PO (08:35)
[2020-08-05] MEDS: guaiFENesin ER 600 MG TAB PO ×2 (08:35→20:14)
[2020-08-05] MEDS: lisinopriL 20 MG TABLET PO (08:35)
[2020-08-05] MEDS: predniSONE 20 MG TABLET PO (08:35)
--- NOTE | 2020-08-05 10:40 | CM.DPC ---
Addendum entered by JAMES Perez 08/05/20 11:06: According to RN patient just had explosive diarrhea, CDiff+, medical management continues. Will hold further visits today. Original Note: DCP Note Patient agreeable to SNF stay; faxed SNF referral to [facility], patient will discuss alternative choices based on MCR choice list w/sister Shikha (visiting today, patient says time unknown) Following for DCP coordination Plan: DC to SNF expected before return back home w/sister and [employer] van [place]
--- NOTE | 2020-08-05 10:56 | P.PN_ITS ---
Subjective Subjective Date Patient Seen: 08/05/20 Time Patient Seen: 10:56 Interval history: 69-year-old super morbidly obese female with a past medical history significant for COPD on home O2 at 3 liters/minute, congestive heart failure, SWATHI, type 2 diabetes with neuropathy, hypertension, hyperlipidemia, hiatal hernia, GERD, anxiety and depression presents to the ER with worsening cough and shortness of breath. Admitted for COPD exacerbation. She requires [facility] assistance at this time, plan is hopefully for SNF although patient would like to discuss with her sister. Currently evaluating for C. difficile as well given foul smelling loose stools today. She continues to feel weak at this time, relates her weakness to her chronic osteoarthritis in her bilateral knees. She still has continued cough today, maybe slight improved, but denies shortness of breath, abdominal pain, or chest pain. Exam Vital Signs (past 8 hours): - 08/05/20 04:00 08/05/20 07:50 08/05/20 08:00 Temperature 97.6 F 96.1 F L Pulse Rate 90 102 H 100 H Respiratory Rate 20 18 14 Blood Pressure 149/60 H 143/75 H Pulse Oximetry 97 93 92 Oxygen Delivery Method Nasal Cannula Oxygen Flow Rate 0 Narrative Exam Narrative: GENERAL APPEARANCE: well developed, super morbidly obese female, BMI 61. Who is hyperkinetic and restless with frequent wet cough. HEENT: Normocephalic, right eyelid ptosis, blind right eye, left pupil reactive, no sinus tenderness to percussion, no rhinorrhea, mucous membranes are moist and pink. NECK/THYROID: neck supple, no JVD, no thyromegaly, trachea midline. LYMPH NODES: no cervical or supraclavicular lymphadenopathy. SKIN: [place], warm and dry, no visible rashes HEART: Regular rhythm with tachycardic rate, S1-S2, no murmur, no rubs or gallops, brisk capillary refill, no pedal edema LUNGS: Breath sounds globally diminished poor inspiratory effort, central coarseness without basilar crackles, no wheezing, frequent coarse cough. CHEST: Symmetrical movement, no accessory muscle use ABDOMEN: Soft, protuberant, obese, nontender to palpation EXTREMITIES: Distal CMS intact, dorsi plantar flexion symmetrical, lower leg strength is 2/5 bilaterally, no deformities or joint effusions, clubbing without cyanosis. 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 PSYCH: Mildly agitated, restless, hyperkinetic, selectively cooperative, stable behavior. Objective Labs Result Diagrams: 08/03/20 22:00 08/04/20 05:17 [facility] Medical History Anxiety Asthma CHF (congestive heart failure) COPD (chronic obstructive pulmonary disease) Depression GERD (gastroesophageal reflux disease) Hiatal hernia Hyperlipidemia Hypertension Migraine Osteoarthritis Peripheral neuropathy Sleep apnea Type 2 diabetes mellitus Surgical History (Updated 08/04/20 @ 03:00 by NICOLAS Hernandez) No history of previous surgery Family History (Updated 08/04/20 @ 03:02 by NICOLAS Hernandez) Father Cardiovascular disease Mother CVA (cerebral vascular accident) Brother Sepsis Social History household members: family Smoking Status: Former smoker alcohol intake: never Assessment & Plan Assessment & Plan narrative: 69-year-old super morbidly obese female with a past medical history significant for COPD on home O2 at 3 liters/minute, congestive heart failure, SWATHI, type 2 diabetes with neuropathy, hypertension, hyperlipidemia, hiatal hernia, GERD, anxiety and depression presents to the ER with worsening cough and shortness of breath. Admitted for COPD exacerbation. Sh e requires maximum assistance at this time, plan is hopefully for SNF although patient would like to discuss with her sister. Currently evaluating for C. difficile as well. 1. Exacerbation COPD, acute bronchitis, present on admission, active -chronic cough worsening over the last 2 weeks, afebrile, breath sounds globally diminished with central coarseness. Suspect secondary to a bronchitis given presentation, hypercarbia likely related to overuse of oxygen at home based on O2 saturations >90% on room air during admission thus far. -chest imaging is limited related to motion artifact but shows no PE or definitive pneumonia. Patient is afebrile and procalcitonin is 0.17. Blood gas as noted below. -Azithromycin x3 days ordered, along with 5 days of 20 mg prednisone. -hypomagnesemia also likely contributing, repleted yesterday and will continue to follow. -ordered albuterol nebulizer every 2 hours as needed and albuterol Atrovent every 6 hours as needed.. Duonebs and pulmicort as well. -oxygen 3 liters/minute initally to titrate to pulse ox between 88 and 92%. Now off of supplemental O2 -requested respiratory therapy consult to evaluate and treat with history of COPD, CHF in sleep apnea. Ordered CPAP for RT protocol. 2. Hypomagnesemia, present on admission, active. - recheck labs today. 3. Generalized weakness, present on admission, active. -patient reports progressive weakness and today is unable to ambulate. Patient is unable to return to home care setting living with her sister with intermittent home health aide help. -mobility is compromised a bilateral knee osteoarthritis, patient describes is [id number] and higher risk for fall related to peripheral diabetic neuropathy. -requested PT and OT to consult evaluate and treat. She is max assist. Plan for SNF if patient agreeable. 3. Insulin-dependent diabetes type 2 with neuropathy, chronic, stable. -serum glucose is 133 on admission. A1c 7.5% -ordered fingerstick blood sugar checks a.c. and HS, ordered low-dose correctional insulin. Continue 60 Units long acting at bedtime. Variable glucose since admission, will continue to titrate as able. 4. Chronic congestive heart failure, probable cor pulmonale, chronic, stable. -imaging that was obtained does not identify pulmonary edema. No peripheral esme ma noted, troponin less than 0.012 and proBNP is 438. -echocardiogram of 08/02/2019 reveals an EF of 60-65 with a decrease in pulmonary artery pressures from 48-30 consistent with a pulmonary artery h ypertension secondary to COPD. -will continue home Lasix 20 mg daily. 5. GERD, chronic, stable. -patient takes omeprazole 20 mg daily, ordered pantoprazole 20 mg daily 6. Super morbid obesity with a BMI of 62.5. -obesity complicating care of diabetes, osteoarthritis, impaired mobility, and COPD. 7. Acute on chronic hypercapnic respiratory failure, improved - patient admitted with COPD exacerbation with pH of 7.31 and PCO2 of 59. Suspect this to be in the setting of overuse of O2 at home given she is maintaining o2 saturations above 90% on room air thus far. 8. Diarrhea, acute, not present on admission - will assess today's diarrhea with C. diff toxin, if positive start PO vanc. This may also be a contributing factor towards her weakness and suspect if this is C. diff it is community acquired as she had a single loose stool yesterday but increased today and she is <48 hours since admission. VTE prophylaxis: Enoxaparin IV fluid: Saline lock Diet: Small consistent carbohydrate, heart healthy Code status: Full code, patient designates her sister to be her surrogate decision maker. Dispo: Inpatient, hopeful for discharge to SNF given max assist currently, as soon as tomorrow. Quality VTE Deep Vein Thrombosis/Pulmonary Embolism Present on Admission: No
--- NOTE | 2020-08-05 11:25 | PC.NURSE ---
Patient luis lifted to chair and sat up for about 45 minutes and was incontinent of and extra large stool and urine. Cleaned up and sample sent down to lab to rule out c.diff. She has multiple skin issues that are charted under skin assessment under physical assessment. She is back to bed and resting comfortably.
--- NOTE | 2020-08-05 12:11 | OT.IP.TRT ---
Current Diagnoses Chronic obstructive pulmonary disease with (acute) exacerbation (08/04/20) Occupational Therapy Treatment Note M2 OT-IP Current Condition Start: 08/04/20 13:01 Freq: Status: Active Protocol: Document 08/04/20 13:02 CGR (Rec: 08/04/20 13:14 CGR [id number]) Occupational Therapy Current Condition Current Condition Evaluation Date 08/04/20 Treatment Diagnosis generalized weakness, COPD exacerbation Diagnosis Onset Date 08/04/20 M3 OT- IP Subjective and Pain Start: 08/04/20 13:01 Freq: Status: Active Protocol: Document 08/05/20 12:10 CGR (Rec: 08/05/20 12:11 CGR [id number]) OT- Subjective Occupational Therapy Visit Type Type Administrative Note Notes Attempted to see pt for OT services. Pt declined all activity at this time. Per nursing, pt had a BM seated in the chair and required significant cleaning which fatigued the pt. Of note, C- diff cultures are pending.
[2020-08-05 12:17] LABS: Clostridium Difficile Tox PCR Negative for C. diff
--- NOTE | 2020-08-05 12:19 | CM.DPNOTE ---
DCP Note Patient agreeable to SNF stay; faxed SNF referral to [facility], patient will discuss alternative choices based on MCR choice list w/sister Shikha (visiting today, patient says time unknown) Following for DCP coordination Plan: DC to SNF expected before return back home w/sister and [employer] van [place]
[2020-08-05 12:43] LABS: Add Manual Diff / Slide Review NO; Basophils Absolute Auto 100 /uL (0-100); Basophils Percent Auto 0.3 % (0-2); Eosinophils Absolute Auto 0 /uL (0-450); Eosinophils Percent Auto 0.3 % (2-4); Hematocrit 39.3 % (36-46); Hemoglobin 12.9 g/dL (12.0-16.0); Lymphocytes Absolute Auto 700 /uL (1100-4500); Lymphocytes Percent Auto 4.8 % (25-40); Mean Corpuscular HGB Conc 32.9 % (30-36); Mean Corpuscular Hemoglobin 29.8 PG (26-34); Mean Corpuscular Volume 90.5 fL (80-100); Monocytes Absolute Auto 400 /uL (0-900); Monocytes Percent Auto 2.6 % (3-14); Neutrophils Absolute Auto 14000 /uL (1500-7000); Platelet Count 335 X10^3/uL (150-400); Red Blood Cell Count 4.34 X10^6/uL (4.0-5.2); Red Cell Distribution Width 13.6 % (11.6-14.8); White Blood Cell Count 15.2 X10^3/uL (4.5-11.0)
[2020-08-05 13:18] LABS: BUN Creatinine Ratio 25.4 (6-22); Blood Urea Nitrogen 16 mg/dL (7-17); Calcium 9.7 mg/dL (8.4-10.2); Carbon Dioxide 30 mmol/L (22-32); Chloride 98 mmol/L (98-107); Estimated Glomerular Filt Rate > 60.0 mL/min (>60); Glucose 220 mg/dL (80-110); HEMOLYSIS 35 (0-50); Magnesium 1.2 mg/dL (1.6-2.3); Sodium 134 mmol/L (137-145)
[2020-08-05 13:25] LABS: Potassium 5.5 mmol/L (3.4-5.1)
--- NOTE | 2020-08-05 13:30 | PT-IP ANOTE ---
Pt declines all mobility this PM. PT spent time encouraging and educating pt on importance of continued mobility. Pt states PT can check again in the morning.
[2020-08-05] MEDS: CODEINE/GUAIFENESIN LIQUID 5ML UDC 10 ML PO ×2 (14:08→20:12)
[2020-08-05] MEDS: MAGNESIUM SULFATE 4 GM/100 ML PIGGYBACK IV (15:13)
[2020-08-05] MEDS: ACETAMINOPHEN 325 MG TABLET 650 MG PO (15:47)
[2020-08-05] MEDS: BENZONATATE 100 MG CAPSULE PO (17:46)
[2020-08-05] MEDS: NORTRIPTYLINE HCL 25 MG CAPSULE 50 MG PO (20:14)
[2020-08-05] MEDS: INSULIN GLARGINE 100 UNIT/ML 3ML PEN 60 UNIT SUBCUT (20:14)
[2020-08-05] MEDS: ATORVASTATIN 20 MG TABLET 40 MG PO (20:14)
[2020-08-06] VITALS (11 sets, daily range): BP systolic 122–145; BP diastolic 65–84; PULSE 76–109; RESP 14–22; TEMP 35.9–36.9; O2SAT 87–96
[2020-08-06] MEDS: AZITHROMYCIN 500 MG in DEXTROSE 5% IN WATER 250 ML IV (02:49)
[2020-08-06 06:08] LABS: Add Manual Diff / Slide Review NO; Basophils Absolute Auto 0 /uL (0-100); Basophils Percent Auto 0.4 % (0-2); Eosinophils Absolute Auto 200 /uL (0-450); Eosinophils Percent Auto 1.6 % (2-4); Hematocrit 37.3 % (36-46); Hemoglobin 12.4 g/dL (12.0-16.0); Lymphocytes Absolute Auto 1800 /uL (1100-4500); Lymphocytes Percent Auto 15.1 % (25-40); Mean Corpuscular HGB Conc 33.2 % (30-36); Mean Corpuscular Hemoglobin 29.7 PG (26-34); Mean Corpuscular Volume 89.5 fL (80-100); Monocytes Absolute Auto 1100 /uL (0-900); Neutrophils Absolute Auto 8800 /uL (1500-7000); Neutrophils Percent Auto 73.9 % (50-75); Platelet Count 337 X10^3/uL (150-400); Red Blood Cell Count 4.17 X10^6/uL (4.0-5.2); Red Cell Distribution Width 12.9 % (11.6-14.8); White Blood Cell Count 11.9 X10^3/uL (4.5-11.0)
[2020-08-06 06:19] LABS: Blood Urea Nitrogen 16 mg/dL (7-17); Calcium 9.3 mg/dL (8.4-10.2); Carbon Dioxide 32 mmol/L (22-32); Chloride 99 mmol/L (98-107); Estimated Glomerular Filt Rate > 60.0 mL/min (>60); Glucose 139 mg/dL (80-110); HEMOLYSIS < 15 (0-50); Magnesium 1.7 mg/dL (1.6-2.3); Potassium 4.1 mmol/L (3.4-5.1); Sodium 135 mmol/L (137-145)
[2020-08-06] MEDS: ALBUTEROL/IPRATROPIUM 3 ML AMPUL INH ×3 (06:48→20:00)
[2020-08-06 06:55] LABS: Cortisol AM (Before 10AM) 2.12 ug/dL (4.46-22.7)
[2020-08-06] MEDS: BUDESONIDE 0.5 MG/2 ML NEB INH ×2 (07:01→20:00)
[2020-08-06] MEDS: DULOXETINE 30 MG CAPSULE 60 MG PO (09:46)
[2020-08-06] MEDS: AMLODIPINE 5 MG TABLET PO (09:47)
[2020-08-06] MEDS: guaiFENesin ER 600 MG TAB PO ×2 (09:48→20:53)
[2020-08-06] MEDS: lisinopriL 20 MG TABLET PO (09:48)
[2020-08-06] MEDS: predniSONE 20 MG TABLET PO (09:49)
[2020-08-06] MEDS: PANTOPRAZOLE DR 20 MG TABLET PO (09:49)
[2020-08-06] MEDS: ENOXAPARIN 40 MG/0.4 ML SYRINGE SUBCUT ×2 (09:51→20:54)
[2020-08-06] MEDS: GABAPENTIN 300 MG CAPSULE PO ×2 (09:51→20:54)
[2020-08-06] MEDS: SODIUM CHLORIDE 0.9% FLUSH 10 ML IV (09:59)
[2020-08-06] MEDS: CODEINE/GUAIFENESIN LIQUID 5ML UDC 10 ML PO ×2 (10:00→18:29)
--- NOTE | 2020-08-06 10:43 | PT.IPTN ---
Current Diagnoses Chronic obstructive pulmonary disease with (acute) exacerbation (08/04/20) Physical Therapy Treatment Note M2 PT-IP Current Condition Start: 08/04/20 09:40 Freq: NEEDED Status: Active Protocol: Document 08/04/20 09:12 AB (Rec: 08/04/20 11:34 AB [id number]) Physical Therapy Current Condition Current Condition Evaluation Date 08/04/20 Treatment Diagnosis COPD exacerbation; difficulty in walking Onset Date 08/04/20 Precautions Other Precautions falls M3 PT-IP Subjective Start: 08/04/20 09:40 Freq: NEEDED Status: Active Protocol: Document 08/06/20 10:43 AW (Rec: 08/06/20 11:22 AW [id number]) Subjective Physical Therapy Visit Type Type Treatment Note Visit Start Time 09:55 Visit Stop Time 10:43 Total Visit Minutes 48 Notes Co-tx with OT based on level of assist required at evaluation. Number of SCREW MACHINE OPERATOR Visits 0 Physical Therapy Visit Comments Patient Comments pt is agreeable to do PT Therapy Pain Assessment Pain When Pain Assessed At Rest Pain Present Pain Present Pain Reported Location Bilateral Knee Scale Used not quantified Pain Management Techniques Distraction,Modification of Treatment,Re-positioning, Timing of Activity with Medications M4 PT-IP Mobility and Gait Start: 08/04/20 09:40 Freq: NEEDED Status: Active Protocol: Document 08/06/20 10:43 AW (Rec: 08/06/20 11:22 AW [id number]) PT-Bed Mobility Assessment Supine to Sit Supine to Sit Contact Guard Assistance,2 Person Assistance,Head of Bed Elevated,Bedrails Scooting Scooting to Edge of Bed Minimal Assistance PT-Transfer Assessment Sit to and From Stand Sit to and from Stand Moderate Assistance,1 Person Assistance,Use of Upper Extremities Equipment Transfer Assistive Device Gait Belt,Front Wheeled Walker Transfers Transfer Destination Chair,Bedside Commode Transfer Technique Stand Step Pivot Transfer Ability Level of Assist Minimal Assistance,2 Person Assistance Comments Mobility Comments Pt was lying in bed as PT and OT arrived. With HOB elevated and heavy use of bedrails, pt completed supine to sit toward left side of bed CGA x 2 for safety. She was able to scoot to EOB min A x 1 in order to get her feet on the ground. Pt on 1 L/min O2 via NC maintained SpO2 91-94%. She rocked back and forth ~10 times and used momentum to stand mod A x 2. With FWW, she step pivot transfered to her right side to [facility] [place]. SpO2 91% and recovererd to 95% within one minute. She voided and then stood mod A x 2 for total assist pericare provided by student nurses. She transfered to chair min A x 2. SpO2 dropped to 87% but recovered to 93% within one minute. Pt needed rest break but agreed to stand for ambulation trial. She stood from the chair mod A x 2 and used FWW to ambulate 12 feet with student nurse providing chair follow. Pt needed min assist x 2 for ambulation. SpO2 94% after walking. Pt was positioned in the recliner and left with call light and all needs in reach. Gait Assessment Gait Gait Assistance Required: Minimum Assistance,1 Person Assist Distance (Feet) 12 Assistive Devices Assistive Device Gait Belt,Front Wheeled Walker Gait Deviations General Gait Pattern Antalgic,Decreased Stride Length,Decreased Feet Clearance,Flexed Trunk,Wide Based Gait Factors Limiting Gait Function Factors Limiting Gait Function Decreased Activity Tolerance, Decreased Strength,Pain,Poor Balance Comments Gait Comments Pt is slow but able to walk with FWW, min A x 2 and third person for chair follow. PT-Balance Assessment Sitting Balance and Reactions Static Sitting Balance Ability Good Dynamic Sitting Balance Ability Fair Standing Balance and Reactions Static Standing Balance Ability Fair Dynamic Standing Balance Ability Fair Device Used FWW M5 PT-IP Objective Assessments Start: 08/04/20 09:40 Freq: NEEDED Status: Active Protocol: Document 08/04/20 09:12 AB (Rec: 08/04/20 11:34 AB [id number]) Orientation Orientation/Cognition Level of Alertness Alert Orientation Name,Place,Situation Language Function Ability No Deficits Noted Safety Awareness Understands Safety Issues Memory Description No Deficits Noted Gross Range of Motion Lower Extremity ROM Impairments pain limiting mobility Strength Lower Extremity Strength Assessment Bilaterally Impaired Muscle Tone Muscle Tone WNL Yes M6 PT-IP Treatment Start: 08/04/20 09:40 Freq: NEEDED Status: Active Protocol: Document 08/06/20 10:43 AW (Rec: 08/06/20 11:22 AW [id number]) Physical Therapy Treatment Education Education Provided Safety Other Treatments Other Treatment Performed Educated pt on benefits of mobility for improving O2 saturation. M7 PT-IP Assessment and Plan Start: 08/04/20 09:40 Freq: NEEDED Status: Active Protocol: Document 08/06/20 10:43 AW (Rec: 08/06/20 11:22 AW [id number]) PT Summary Assessment and Plan Summary Impairments Pain,ROM,Strength,Balance, Coordination,Sensation,Bed Mobility,Transfers,Gait, Activity Tolerance Progress Towards Goals Slow Progress due to Pain,Slow Progress due to Medical Issues,Slow Progress due to Activity Tolerance Assessment Summary Pt with improved mobility this date, maintaining SpO2 >90% on 1L/min. She tolerated bed mobility, transfers, and gait with FWW min-mod A x 2. Pt will require SNF rehab to improve strength and mobility independence. Goals Bed Mobility Goal Moderate Assistance Transfer Goal Moderate Assistance,Front Wheeled Walker Gait Goal Moderate Assistance,Front Wheel Walker Gait Distance 15 Other Goals LTG: SBA bed mobility LTG: SBA transfer with FWW LTG: SBA amb 20 feet with FWW Days to Meet Goals 10 Frequency of Treatment Frequency Of Treatment Once a Day Treatment Plan Physical Therapy Treatment Plan Bed Mobility Training,Transfer Training,Gait Training, Therapeutic Exercise,Balance Retraining,Discharge Planning, Hot or Cold Pack,Neuromuscular Re-ed,Coordination Retraining ,Manual Therapy Precautions Other Precautions falls Recommendations To Nursing Amount of Assist Needed 3 or More Person Assist, Mechanical Lift Discharge Recommendations PT Discharge Recommendations SNF Rehab Transportation Needs at Discharge Wheelchair/Cabulance,Stretcher /Ambulance
--- NOTE | 2020-08-06 10:43 | OT.IP.TRT ---
Current Diagnoses Chronic obstructive pulmonary disease with (acute) exacerbation (08/04/20) Occupational Therapy Treatment Note M2 OT-IP Current Condition Start: 08/04/20 13:01 Freq: Status: Active Protocol: Document 08/04/20 13:02 CGR (Rec: 08/04/20 13:14 CGR [id number]) Occupational Therapy Current Condition Current Condition Evaluation Date 08/04/20 Treatment Diagnosis generalized weakness, COPD exacerbation Diagnosis Onset Date 08/04/20 M3 OT- IP Subjective and Pain Start: 08/04/20 13:01 Freq: Status: Active Protocol: Document 08/06/20 10:49 [facility] (Rec: 08/06/20 10:58 [facility] [id number]) OT- Subjective Occupational Therapy Visit Type Type Treatment Note Visit Start Time 09:55 Visit Stop Time 10:43 Total Visit Minutes 48 Occupational Therapy Visit Comments Patient Comments Pt agreed to try to get up and needing to use the BSC. PT/OT and 2 state tested nursing assistant there to assist with mobility needs as pt needing extensive assist. Patient/Caregiver Goals To go to skilled rehab and get stronger to be able to be more independent with her needs. OT Pain Assessment Pain When Pain Assessed At Rest Pain Present Pain Present Denied Pain M4 OT- IP ADL's Start: 08/04/20 13:01 Freq: Status: Active Protocol: Document 08/06/20 10:49 [facility] (Rec: 08/06/20 10:58 [facility] [id number]) OT [id number] Comments OT Self-Feeding Comments Not meal time OT ADL-Grooming General Evaluation Grooming Ability Standby Assistance Comments OT Grooming Comments Pt able to wash her face while seated on the BSC after set- up. OT ADL-Oral Care Comments Oral Care Comments Pt declined to perform OT ADL-Dressing General Eval Lower Body Dressing Ability Total Assistance Areas Needing Assistance Socks OT ADL-Toileting General Evaluation Toileting Ability Total Assistance Areas Needing Assistance Manage Clothing,Perform Perineal Hygiene Comments OT Toileting Comments 2 person assist to stand to FWW while another assisted with pericare needs. OT ADL-Bathing Bathing Type Bathing Type Sponge Bath General Evaluation Bathing Ability Maximal Assistance Areas Needing Assistance Wash/Dry Back,Wash/Dry Perineal Area,Wash/Dry Lower Extremities M5 OT- IP IADL's Start: 08/04/20 13:01 Freq: Status: Active Protocol: Document 08/04/20 13:02 CGR (Rec: 08/04/20 13:14 CGR [id number]) OT-Instrumental Activities of Daily Living Deficits IADL Deficits Identified Deficits Home Safety Awareness Awareness of Need for Assistance at Home Good Awareness Ability to Problem Solve Emergency Able to Problem Solve Situations Medication Management Medication Management Caregiver Administers Money Management Money Management Caregiver Provides Assistance Meal Preparation Meal Preparation Caregiver Provides Assist Apartment Locator Apartment Locator Caregiver Provides Assist Driving Driving Comments Pt does not drive M6 OT- IP Functional Cognition Start: 08/04/20 13:01 Freq: Status: Active Protocol: Document 08/04/20 13:02 CGR (Rec: 08/04/20 13:14 CGR [id number]) Cognitive Factors Limiting Selfcare Function Cognitive Ability Level of Alertness Alert Patient Orientation Name,Age,Birthday,Month,Date, Year,Day of Week,Place, Situation Attention Span Ability Capable of Focused Attention, Unable to Sustain Attention Ability to Follow Commands Able to Follow One Step Commands with Increased Time, Able to Follow One Step Commands with Repetition Cognitive Comments Cognitive Assessment Comments Pt appears cognitively intact but flustered on this date. 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 M7 OT- IP Mobility and Balance Start: 08/04/20 13:01 Freq: Status: Active Protocol: Document 08/06/20 10:49 [facility] (Rec: 08/06/20 10:58 [facility] [id number]) OT- Bed Mobility Assessment Supine to Sit Supine to Sit Assist Contact Guard Assistance,1 Person Assistance,Head of Bed Elevated,Bedrails OT-Transfer Assessment Sit to and From Stand Sit to and from Stand Moderate Assistance,2 Person Assistance Transfers Transfer Ability Minimal Assistance,2 Person Assistance Technique Transfer Destination Bed,Bedside Commode,Chair Transfer Technique Stand Step Pivot Devices Transfer Assistive Devices Gait Belt,Front Wheeled Walker Comments Mobility Comments Use of bariatric FWW. Pt heayy use of momentum to vacuum metalizing supervisor addition to therapist JEROD Jarquin 2 , another person to help hold the FWW. O2 on 1L initially dropped to 84% after 1st transfer and needing a few minutes to recover. After 2nd transfer pt able to stay at 93% and at 95% at the end of the session. Able to pass also to nursing aid as to holw much help will be needed for transfer back to the bed, 3 person assist or use of luis. OT- Balance Assessment Sitting Balance and Reactions Static Sitting Balance Ability Good Dynamic Sitting Balance Ability Fair Standing Balance and Reactions Static Standing Balance Ability Poor M9 OT- IP Assessment and Plan Start: 08/04/20 13:01 Freq: Status: Active Protocol: Document 08/06/20 10:49 [facility] (Rec: 08/06/20 10:58 [facility] [id number]) OT Summary Assessment and Plan Potential Rehabilitation Potential Good Analytic Complexity at Evaluation High Summary OT Impairments Pain,Range of Motion,Strength, Balance,Functional Mobility, Grooming,Dressing,Toileting, Bathing,Toilet Transfers, Shower Transfers,Activity Tolerance Progress Towards Goals Slow Progress due to Medical Issues,Slow Progress due to Activity Tolerance Assessment Summary Pt able to tolerate two transfers today with MODA X2-3 with bariatric FWW. Pt also able to help participate in sponge bathing while seated on the BSC. Pt is motivated to get stronger and willing to go to skilled rehab when medically stable. Goals Grooming Goal Independent Dressing Goal Independent,Cable Machine Operator,Sock Aid Toileting Goal Minimal Assistance Bathing Goal Moderate Assistance Toilet Transfer Goal Independent Shower Transfer Goal Moderate Assistance Days to Meet Goals 48 Frequency of Treatment Frequency Of Treatment Once a Day Treatment Plan OT Treatment Plan ADL Training,Functional Mobility,Therapeutic Exercises ,Patient/Family Education, Discharge Planning Other Treatment Recommendations and Next seated ADLs Treatment Focus Discharge Recommendations OT Discharge Recommendations SNF Rehab Transportation Needs at Discharge Wheelchair/Cabulance
--- NOTE | 2020-08-06 11:41 | PM.PN.1 ---
Subjective Subjective Date Patient Seen: 08/06/20 Time Patient Seen: 11:42 Interval history: 69-year-old super morbidly obese female with a past medical history significant for COPD on home O2 at 3 liters/minute, congestive heart failure, SWATHI, type 2 diabetes with neuropathy, hypertension, hyperlipidemia, hiatal hernia, GERD, anxiety and depression presents to the ER with worsening cough and shortness of breath. Admitted for COPD exacerbation. She requires maximum assistance at this time, though is improving today. States her cough is slightly improved as is her strength. No complaints of diarrhea today. Course complicated by foul smelling loose stools which were c. diff negative. Given electrolyte abnormalities cortisol level was sent and was low, but repeat evaluation with possible stim. testing recommended as an outpatient now as electrolyte levels have improved. Plan is currently for SNF tomorrow. Exam Vital Signs (past 8 hours): - 08/06/20 04:45 08/06/20 06:51 08/06/20 08:00 Temperature 97.3 F L 97.8 F Pulse Rate 95 H 88 88 Respiratory Rate 22 16 16 Blood Pressure 137/77 142/65 H Pulse Oximetry 94 94 93 08/06/20 09:48 Temperature Pulse Rate 88 Respiratory Rate Blood Pressure 142/65 H Pulse Oximetry Oxygen Delivery Method Nasal Cannula Oxygen Flow Rate 1 Narrative Exam Narrative: GENERAL APPEARANCE: well developed, super morbidly obese female, BMI 61. restless with improved cough. Sitting in bedside chair, flat with feet on chair. HEENT: Normocephalic, right eyelid ptosis, blind right eye, left pupil reactive, no sinus tenderness to percussion, no rhinorrhea, mucous membranes are moist and pink. NECK/THYROID: neck supple, no JVD, no thyromegaly, trachea midline. LYMPH NODES: no cervical or supraclavicular lymphadenopathy. SKIN: [place], warm and dry, no visible rashes HEART: Regular rhythm with tachycardic rate, S1-S2, no murmur, no rubs or gallops, brisk capillary refill, no pedal edema LUNGS: Breath sounds globally diminished, poor inspiratory effort, central coarseness without basilar crackles, no wheezing. CHEST: Symmetrical movement, no accessory muscle use ABDOMEN: Soft, protuberant, obese, nontender to palpation EXTREMITIES: Distal CMS intact, dorsi plantar flexion symmetrical and 5/5. no deformities or joint effusions, clubbing without cyanosis. 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 PSYCH: calm, cooperative, stable behavior. Objective Labs Result Diagrams: 08/06/20 05:57 08/06/20 05:57 Labs: Laboratory Results - last 24 hr 08/05/20 08/05/20 08/05/20 10:40 12:35 12:35 WBC 15.2 H RBC 4.34 Hgb 12.9 Hct 39.3 MCV 90.5 MCH 29.8 MCHC 32.9 RDW 13.6 Plt Count 335 Neut % (Auto) 92.0 H Lymph % (Auto) 4.8 L [place] % (Auto) 2.6 L Eos % (Auto) 0.3 L Baso % (Auto) 0.3 Neut # (Auto) 50314 H Lymph # (Auto) 700 L [place] # (Auto) 400 Eos # (Auto) 0 Baso # (Auto) 100 Sodium 134 L Potassium 5.5 H Chloride 98 Carbon Dioxide 30 BUN 16 Creatinine 0.63 Estimated GFR > 60.0 BUN/Creatinine Ratio 25.4 H Glucose 220 H Calcium 9.7 Magnesium 1.2 L Cortisol AM Sample C. difficile Tox (PCR) Negative for c. diff 08/06/20 08/06/20 08/06/20 05:57 05:57 05:57 WBC 11.9 H RBC 4.17 Hgb 12.4 Hct 37.3 MCV 89.5 MCH 29.7 MCHC 33.2 RDW 12.9 Plt Count 337 Neut % (Auto) 73.9 Lymph % (Auto) 15.1 L [place] % (Auto) 9.0 Eos % (Auto) 1.6 L Baso % (Auto) 0.4 Neut # (Auto) 8800 H Lymph # (Auto) 1800 [place] # (Auto) 1100 H Eos # (Auto) 200 Baso # (Auto) 0 Sodium 135 L Potassium 4.1 D Chloride 99 Carbon Dioxide 32 BUN 16 Creatinine 0.64 Estimated GFR > 60.0 BUN/Creatinine Ratio 25.0 H Glucose 139 H Calcium 9.3 Magnesium 1.7 Cortisol AM Sample 2.12 L C. difficile Tox (PCR) [facility] Medical History Anxiety Asthma CHF (congestive heart failure) COPD (chronic obstructive pulmonary disease) Depression GERD (gastroesophageal reflux disease) Hiatal hernia Hyperlipidemia Hypertension Migraine Osteoarthritis Peripheral neuropathy Sleep apnea Type 2 diabetes mellitus Surgical History (Updated 08/04/20 @ 03:00 by NICLOAS Hernandez) No history of previous surgery Family History (Updated 08/04/20 @ 03:02 by NICOLAS Hernandez) Father Cardiovascular disease Mother CVA (cerebral vascular accident) Brother Sepsis Social History household members: family Smoking Status: Former smoker alcohol intake: never Assessment & Plan Assessment & Plan narrative: 69-year-old super morbidly obese female with a past medical history significant for COPD on home O2 at 3 liters/minute, congestive heart failure, SWATHI, type 2 diabetes with neuropathy, hypertension, hyperlipidemia, hiatal hernia, GERD, anxiety and depression presents to the ER with worsening cough and shortness of breath. Admitted for COPD exacerbation. She requires maximum assistance at this time, plan is hopefully for SNF although patient would like to discuss with her sister. Currently evaluating for C. difficile as well. 1. Exacerbation COPD, acute bronchitis, present on admission, active -chronic cough worsening over the last 2 weeks, afebrile, breath sounds globally diminished with central coarseness. Suspect secondary to a bronchitis given presentation, hypercarbia likely related to overuse of oxygen at home based on O2 saturations >90% on room air during admission thus far. -chest imaging is limited related to motion artifact but shows no PE or definitive pneumonia. Patient is afebrile and procalcitonin is 0.17. Blood gas as noted below. -Azithromycin x3 days ordered, along with 5 days of 20 mg prednisone. -hypomagnesemia also likely contributing, repleted daily since admission, now up to 1.7. -ordered albuterol nebulizer every 2 hours as needed and albuterol Atrovent every 6 hours as needed.. Duonebs and pulmicort as well. -oxygen 3 liters/minute initally to titrate to pulse ox between 88 and max 96%. Now off of supplemental O2 intermittenly. -requested respiratory therapy consult to evaluate and treat with history of COPD, CHF in sleep apnea. Ordered CPAP for RT protocol. 2. Hypomagnesemia, present on admission, active. - Mg 1.7 today, improving, will provide additional repletion again today. - also with borderline hyponatremia and hyperkalemia on admission, now improved. Cortisol level was sent and was 2.12. Electrolyte abnormalities have also improved with addition of prednisone since admission. recommend outpatient repeat evaluation after prednisone completion and stim testing as soon as possible. 3. Generalized weakness, present on admission, improving -patient reports progressive weakness and today is unable to ambulate. Patient is unable to return to home care setting living with her sister with intermittent home health aide help. -mobility is compromised a bilateral knee osteoarthritis, patient describes is [id number] and higher risk for fall related to peripheral diabetic neuropathy. -requested PT and OT to consult evaluate and treat. Plan for SNF upon discharge. -possibly secondary to combination of COPD exacerbation, hypomagnesemia, and multiple chronic medical conditions. 3. Insulin-dependent diabetes type 2 with neuropathy, chronic, stable. -serum glucose is 133 on admission. A1c 7.5% -ordered fingerstick blood sugar checks a.c. and HS, ordered low-dose correctional insulin. Continue 60 Units long acting at bedtime. Variable glucose since admission, will continue to titrate as able. 4. Chronic congestive heart failure, probable cor pulmonale, chronic, stable. -imaging that was obtained does not identify pulmonary edema. No peripheral edema noted, troponin less than 0.012 and proBNP is 438. -echocardiogram of 08/02/2019 reveals an EF of 60-65 with a decrease in pulmonary artery pressures from 48-30 consistent with a pulmonary artery hypertension secondary to COPD. -will continue home Lasix 20 mg daily. 5. GERD, chronic, stable. -patient takes omeprazole 20 mg daily, ordered pantoprazole 20 mg daily 6. Super morbid obesity with a BMI of 62.5. -obesity complicating care of diabetes, osteoarthritis, impaired mobility, and COPD. 7. Acute on chronic hypercapnic respiratory failure, improved - patient admitted with COPD exacerbation with pH of 7.31 and PCO2 of 59. Suspect this to be in the setting of overuse of O2 at home given she is maintaining o2 saturations above 90% on room air thus far, perhaps worsened too in setting of hypomagnesemia. 8. Diarrhea, acute, not present on admission, improved. - patient developed loose stools on HD#1, foul smelling per staff, CSivan difficile testing was negative and has improved. Can have immodium as needed. VTE prophylaxis: Enoxaparin IV fluid: Saline lock Diet: Small consistent carbohydrate, heart healthy Code status: Full code, patient designates her sister to be her surrogate decision maker. Dispo: Inpatient, hopeful for discharge to SNF given current level of assistance needed, probable discharge tomorrow. Quality VTE Deep Vein Thrombosis/Pulmonary Embolism Present on Admission: No
--- NOTE | 2020-08-06 12:00 | DIET.PN ---
Dietary Progress Note Assessment: Ms. Lara is a 69-year-old female with a past medical history significant for morbid obesity, COPD on home O2, congestive heart failure, SWATHI, type 2 diabetes with neuropathy, hypertension, hyperlipidemia, hiatal hernia, GERD, anxiety and depression presents to the ER with worsening cough and shortness of breath. Admitted for COPD exacerbation. She lives with her sister who she reports does the majority of the meal preparation. She receives lunch meals on wheels 3 x/week. She states reduced appetite since the time change and has been eating a light dinner. She reports meal time insulin novolog at set dose with correctional. Tries to limit pasta and starches. She is starting prednisone and is aware it may have an effect on her glucose levels. HT: 65in WT: 375lb UBW: BMI: 61.3 Labs: A1c: 7.5 B, 220, 139, 196 MNA: 13 Héctor: 17 Nutrition Diagnosis: Overweight/Obesity r/t not ready for diet or lifestyle change aeb pt report dietary intake convenient/ pre-packaged/frozen meals, lack of physical activity. Interventions: 1. Reviewed carb counting and reduced calorie meal plan to help with weight management and COPD exacerbation. Recommended patient remain under 45g carbs with each meal and 15 g carbs for snacks. 2. Recommended reduced sodium intake through limiting frozen /convenient foods. Diet Order: heart healthy / carb consistent EER: 7269-8545 kcal (13-15 joie/kg morbid obesity); pro: 170-200g (1-1.2g/kg); carb: 180-200g (40% joie) Monitoring/Evaluations: weight, PO's, need for outpatient diabetes education
[2020-08-06] MEDS: INSULIN LISPRO 100 UNIT/ML 3ML VIAL SUBCUT ×3 (12:15→20:56)
--- NOTE | 2020-08-06 13:24 | CM.DANOTE ---
DCP/Assessment: Reviewed chart. See previous SENIOR ECONOMIST notes for completed in-person evaluation. [facility] evaluating for SNF placement. Per provider d/c anticipated for Thursday08-07-20. P: CM team following for SNF placement. Discharge Planning/Care Management CM Discharge Assessment Start: 08/04/20 13:39 Freq: Status: Active Protocol: Document 08/06/20 13:18 KJS (Rec: 08/06/20 13:24 KJS [id number]) Discharge Planning Assessment Assigned Insurance Commissioner Zulma Rivera SENIOR ECONOMIST Contact Information Shikha Lara (sister) # [phone] Advance Directives? No History Provided By Patient,Medical Record Prior Living Arrangements Apartment/Condo Household Members family Independent with ADL's No Is patient alert and oriented? Yes Needs Assistance With Bathing,Meal Prep,Home Chores / Shopping Caregiver for Another No Community Services used prior to Oxygen Therapy admission: DME Already Rented / Owned Hospital Bed,Wheelchair,FWW / Walker,Oxygen,Bedside Commode, Other Comment Patient has lift recliner at residence. Patient/Family Preference Jail Facility Discharge Plan Jail Facility Transportation Arrangement TBD Referrals Initiated Jail Additional Comment [facility] and [facility] evaluating for admit . If patient plan is SNF: Has PASSR been Yes completed? Medicare Choice List Provided Yes Has Agency SNF been contacted Yes Review Status In Process Next Review Type Continued Stay Review
[2020-08-06] MEDS: SODIUM CHLORIDE 0.9% 250 ML 21 ML IV (13:28)
[2020-08-06] MEDS: MAGNESIUM SULFATE 2 GM/50 ML PIGGYBACK IV (13:29)
[2020-08-06] MEDS: ZINC TOP (16:34)
[2020-08-06] MEDS: DIPHENHYDRAMINE TOP (16:34)
[2020-08-06] MEDS: NORTRIPTYLINE HCL 25 MG CAPSULE 50 MG PO (20:53)
[2020-08-06] MEDS: ATORVASTATIN 20 MG TABLET 40 MG PO (20:53)
[2020-08-06] MEDS: DOCUSATE 100 MG CAPSULE PO (20:54)
[2020-08-06] MEDS: INSULIN GLARGINE 100 UNIT/ML 3ML PEN 60 UNIT SUBCUT (20:55)
[2020-08-07] VITALS (8 sets, daily range): BP systolic 133–146; BP diastolic 60–74; PULSE 74–85; RESP 14–20; TEMP 36.4–36.6; O2SAT 91–93
[2020-08-07 05:51] LABS: Add Manual Diff / Slide Review NO; Basophils Absolute Auto 0 /uL (0-100); Basophils Percent Auto 0.3 % (0-2); Eosinophils Absolute Auto 100 /uL (0-450); Eosinophils Percent Auto 1.2 % (2-4); Hematocrit 37.2 % (36-46); Hemoglobin 12.3 g/dL (12.0-16.0); Lymphocytes Absolute Auto 1700 /uL (1100-4500); Lymphocytes Percent Auto 14.4 % (25-40); Mean Corpuscular HGB Conc 33.2 % (30-36); Mean Corpuscular Hemoglobin 29.9 PG (26-34); Mean Corpuscular Volume 90.2 fL (80-100); Monocytes Absolute Auto 1100 /uL (0-900); Monocytes Percent Auto 9.2 % (3-14); Neutrophils Absolute Auto 8700 /uL (1500-7000); Neutrophils Percent Auto 74.9 % (50-75); Platelet Count 349 X10^3/uL (150-400); Red Blood Cell Count 4.12 X10^6/uL (4.0-5.2); Red Cell Distribution Width 13.4 % (11.6-14.8); White Blood Cell Count 11.7 X10^3/uL (4.5-11.0)
[2020-08-07 05:55] LABS: Blood Urea Nitrogen 17 mg/dL (7-17); Calcium 9.2 mg/dL (8.4-10.2); Carbon Dioxide 35 mmol/L (22-32); Chloride 98 mmol/L (98-107); Estimated Glomerular Filt Rate > 60.0 mL/min (>60); Glucose 126 mg/dL (80-110); HEMOLYSIS < 15 (0-50); Magnesium 1.6 mg/dL (1.6-2.3); Potassium 4.3 mmol/L (3.4-5.1); Sodium 135 mmol/L (137-145)
[2020-08-07] MEDS: ALBUTEROL/IPRATROPIUM 3 ML AMPUL INH ×2 (07:41→14:17)
[2020-08-07] MEDS: BUDESONIDE 0.5 MG/2 ML NEB INH (07:50)
[2020-08-07] MEDS: PANTOPRAZOLE DR 20 MG TABLET PO (08:54)
[2020-08-07] MEDS: AMLODIPINE 5 MG TABLET PO (08:54)
[2020-08-07] MEDS: predniSONE 20 MG TABLET PO (08:54)
[2020-08-07] MEDS: DULOXETINE 30 MG CAPSULE 60 MG PO (08:54)
[2020-08-07] MEDS: guaiFENesin ER 600 MG TAB PO (08:54)
[2020-08-07] MEDS: GABAPENTIN 300 MG CAPSULE PO (08:54)
[2020-08-07] MEDS: lisinopriL 20 MG TABLET PO (08:55)
[2020-08-07] MEDS: ENOXAPARIN 40 MG/0.4 ML SYRINGE SUBCUT (08:55)
[2020-08-07] MEDS: DOCUSATE 100 MG CAPSULE PO (08:55)
[2020-08-07] MEDS: SODIUM CHLORIDE 0.9% FLUSH 10 ML IV (08:57)
--- NOTE | 2020-08-07 09:00 | PT-IP ANOTE ---
Pt refused AM treatment. I couldn't turn my mind off last night and I'm too tired. Pt agreed PT could check on her later.
--- NOTE | 2020-08-07 10:47 | OT.IPNOTE ---
Attempted to see pt for OT treatment, pt states too tired to do at this time as just got up with nursing earlier. To check on the pt later.
[2020-08-07 11:28] LABS: COVID19 -Nasal RAPID Negative (Negative)
--- NOTE | 2020-08-07 11:33 | PT-IP ANOTE ---
checked on pt and pt refused PT. stated that when she walked yesterday, she extended her R knee too much and is sore at this time and wants to just rest.
--- NOTE | 2020-08-07 11:40 | PT.IPTN ---
Current Diagnoses Chronic obstructive pulmonary disease with (acute) exacerbation (08/04/20) Physical Therapy Treatment Note M2 PT-IP Current Condition Start: 08/04/20 09:40 Freq: NEEDED Status: Active Protocol: Document 08/04/20 09:12 AB (Rec: 08/04/20 11:34 AB [email or web address]) Physical Therapy Current Condition Current Condition Evaluation Date 08/04/20 Treatment Diagnosis COPD exacerbation; difficulty in walking Onset Date 08/04/20 Precautions Other Precautions falls M3 PT-IP Subjective Start: 08/04/20 09:40 Freq: NEEDED Status: Active Protocol: Document 08/07/20 11:40 AB (Rec: 08/07/20 12:50 AB [email or web address]) Subjective Physical Therapy Visit Type Type Treatment Note Visit Start Time 11:40 Visit Stop Time 11:57 Total Visit Minutes 17 Number of DIRECTOR MARKET RESEARCH Visits 0 Physical Therapy Visit Comments Patient Comments pt initially refused PT. After a few minutes, OT informed PT that pt wants to use the toilet and needs assistance. M4 PT-IP Mobility and Gait Start: 08/04/20 09:40 Freq: NEEDED Status: Active Protocol: Document 08/07/20 11:40 AB (Rec: 08/07/20 12:50 AB [email or web address]) PT-Transfer Assessment Sit to and From Stand Sit to and from Stand Maximum Assistance,2 Person Assistance,Use of Upper Extremities Equipment Transfer Assistive Device Gait Belt,Front Wheeled Walker Orthotic/Prosthetic Devices or Brace: No Transfers Transfer Destination Bedside Commode Transfer Technique ambulated using FWW Transfer Ability Level of Assist Minimal Assistance,Moderate Assistance,1 Person Assistance ,Use of Upper Extremities Comments Mobility Comments pt completed sit to stand from chair requiring max A x 2 . pt used rocking technique and requires max A x 2 and also needs assist with stabilizing FWW during UE transition from chair to FWW. pt ambulated to the bedside commode ~ 8 ft min to mod A and cues. completed sit to stand max A x 2 from bedside commode and was able to maintain standing using FWW CGA while OT assisted with hygiene care. pt ambulated from bedside commode to the chair using fWW min to mod A. positioned on chair. Left pt with OT. Gait Assessment Gait Gait Assistance Required: Minimum Assistance,Moderate Assistance,1 Person Assist Distance (Feet) 8 Able to Maintain Weight Bearing Status Yes During Gait Assistive Devices Assistive Device Gait Belt,Front Wheeled Walker Orthotic/Prosthetic Devices or Brace: No Gait Deviations General Gait Pattern Antalgic,Decreased Stride Length,Decreased Feet Clearance,Step-to Gait Factors Limiting Gait Function Factors Limiting Gait Function Decreased Activity Tolerance, Decreased Strength,Pain,Poor Balance,Poor Safety Awareness Comments Gait Comments pls refer to mobility section for details M5 PT-IP Objective Assessments Start: 08/04/20 09:40 Freq: NEEDED Status: Active Protocol: Document 08/04/20 09:12 AB (Rec: 08/04/20 11:34 AB [email or web address]) Orientation Orientation/Cognition Level of Alertness Alert Orientation Name,Place,Situation Language Function Ability No Deficits Noted Safety Awareness Understands Safety Issues Memory Description No Deficits Noted Gross Range of Motion Lower Extremity ROM Impairments pain limiting mobility Strength Lower Extremity Strength Assessment Bilaterally Impaired Muscle Tone Muscle Tone WNL Yes M6 PT-IP Treatment Start: 08/04/20 09:40 Freq: NEEDED Status: Active Protocol: Document 08/07/20 11:40 AB (Rec: 08/07/20 12:50 AB [email or web address]) Physical Therapy Treatment Education Education Provided Safety M7 PT-IP Assessment and Plan Start: 08/04/20 09:40 Freq: NEEDED Status: Active Protocol: Document 08/07/20 11:40 AB (Rec: 08/07/20 12:50 AB [email or web address]) PT Summary Assessment and Plan Potential Rehabilitation Potential Fair Summary Impairments Pain,ROM,Strength,Balance, Coordination,Sensation,Tone, Cognition,Bed Mobility, Transfers,Gait,Activity Tolerance Progress Towards Goals Slow Progress due to Activity Tolerance Assessment Summary pt is progressing slowly with mobility but continues to require 2 person assist with mobility and has decrease activity tolerance. pt will require SNF rehab to improve functional independence. Goals Bed Mobility Goal Moderate Assistance Transfer Goal Moderate Assistance,Front Wheeled Walker Gait Goal Moderate Assistance,Front Wheel Walker Gait Distance 15 Other Goals LTG: SBA bed mobility LTG: SBA transfer with FWW LTG: SBA amb 20 feet with FWW Days to Meet Goals 10 Frequency of Treatment Frequency Of Treatment Once a Day Treatment Plan Physical Therapy Treatment Plan Bed Mobility Training,Transfer Training,Gait Training, Therapeutic Exercise,Balance Retraining,Discharge Planning, Hot or Cold Pack,Neuromuscular Re-ed,Coordination Retraining ,Manual Therapy Precautions Other Precautions falls Recommendations To Nursing Amount of Assist Needed Mechanical Lift Discharge Recommendations PT Discharge Recommendations SNF Rehab Transportation Needs at Discharge Wheelchair/Cabulance
--- NOTE | 2020-08-07 11:57 | OT.IP.TRT ---
Current Diagnoses Chronic obstructive pulmonary disease with (acute) exacerbation (08/04/20) Occupational Therapy Treatment Note M2 OT-IP Current Condition Start: 08/04/20 13:01 Freq: Status: Active Protocol: Document 08/04/20 13:02 CGR (Rec: 08/04/20 13:14 CGR [id number]) Occupational Therapy Current Condition Current Condition Evaluation Date 08/04/20 Treatment Diagnosis generalized weakness, COPD exacerbation Diagnosis Onset Date 08/04/20 M3 OT- IP Subjective and Pain Start: 08/04/20 13:01 Freq: Status: Active Protocol: Document 08/07/20 12:01 [facility] (Rec: 08/07/20 12:08 [facility] [id number]) OT- Subjective Occupational Therapy Visit Type Type Treatment Note Visit Start Time 11:40 Visit Stop Time 11:57 Total Visit Minutes 17 Occupational Therapy Visit Comments Patient Comments Pt wanting to use the BSC. PT also present to assist with mobility needs. Patient/Caregiver Goals To go to skilled rehab. OT Pain Assessment Pain When Pain Assessed At Rest Pain Present Pain Present Denied Pain M4 OT- IP ADL's Start: 08/04/20 13:01 Freq: Status: Active Protocol: Document 08/07/20 12:01 [facility] (Rec: 08/07/20 12:08 [facility] [id number]) OT [id number] Comments OT Self-Feeding Comments Not meal time OT ADL-Grooming General Evaluation Grooming Ability Standby Assistance Comments OT Grooming Comments Pt able to wash her hands with wash cloth while seated. OT ADL-Oral Care Comments Oral Care Comments Pt declined to perform OT ADL-Toileting General Evaluation Toileting Ability Total Assistance Areas Needing Assistance Perform Perineal Hygiene OT ADL-Bathing Comments OT Bathing Comments NOt performed. M5 OT- IP IADL's Start: 08/04/20 13:01 Freq: Status: Active Protocol: Document 08/04/20 13:02 CGR (Rec: 08/04/20 13:14 CGR [id number]) OT-Instrumental Activities of Daily Living Deficits IADL Deficits Identified Deficits Home Safety Awareness Awareness of Need for Assistance at Home Good Awareness Ability to Problem Solve Emergency Able to Problem Solve Situations Medication Management Medication Management Caregiver Administers Money Management Money Management Caregiver Provides Assistance Meal Preparation Meal Preparation Caregiver Provides Assist Property And Equipment Clerk Property And Equipment Clerk Caregiver Provides Assist Driving Driving Comments Pt does not drive M6 OT- IP Functional Cognition Start: 08/04/20 13:01 Freq: Status: Active Protocol: Document 08/04/20 13:02 CGR (Rec: 08/04/20 13:14 CGR [id number]) Cognitive Factors Limiting Selfcare Function Cognitive Ability Level of Alertness Alert Patient Orientation Name,Age,Birthday,Month,Date, Year,Day of Week,Place, Situation Attention Span Ability Capable of Focused Attention, Unable to Sustain Attention Ability to Follow Commands Able to Follow One Step Commands with Increased Time, Able to Follow One Step Commands with Repetition Cognitive Comments Cognitive Assessment Comments Pt appears cognitively intact but flustered on this date. 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 M7 OT- IP Mobility and Balance Start: 08/04/20 13:01 Freq: Status: Active Protocol: Document 08/07/20 12:01 [facility] (Rec: 08/07/20 12:08 [facility] [id number]) OT-Transfer Assessment Sit to and From Stand Sit to and from Stand Moderate Assistance,2 Person Assistance Transfers Transfer Ability Minimal Assistance,1 Person Assistance Technique Transfer Destination Bed,Bedside Commode,Chair Transfer Technique Stand Step Pivot Devices Transfer Assistive Devices Gait Belt,Front Wheeled Walker Comments Mobility Comments Pt continues to need momentum to assist to silk screen printer addition go therapists MOD AX 2 to stand to FWW. SANDHYA with FWW to walk to the [facility] and back. Pt needing assist to manage O2 lines. OT- Balance Assessment Sitting Balance and Reactions Static Sitting Balance Ability Normal Dynamic Sitting Balance Ability Good Standing Balance and Reactions Static Standing Balance Ability Fair M8 OT- IP Objective Assessments Start: 08/04/20 13:01 Freq: Status: Active Protocol: Document 08/04/20 13:02 CGR (Rec: 08/04/20 13:14 CGR [id number]) OT Gross Range of Motion Upper Extremity Range of Motion Assessment Bilaterally Impaired ROM Impairments B shlds with reported rotator cuff tears. Painful above 45 degrees OT Strength Upper Extremity Strength Assessment Within Functional Limits Comments Strength Comments shld not tested but pt is 4+/5 to arms and hands dispite pain to the R thumb area d/t arthritis. OT- Coordination Assessment Upper Extremity Finger to Nose Test Within Functional Limits Finger Tapping Test Within Functional Limits OT-Muscle Tone Assessment Muscle Tone WNL Yes OT Sensation Assessment Edema Edema Absent M9 OT- IP Assessment and Plan Start: 08/04/20 13:01 Freq: Status: Active Protocol: Document 08/07/20 12:01 [facility] (Rec: 08/07/20 12:08 [facility] [id number]) OT Summary Assessment and Plan Summary OT Impairments Pain,Range of Motion,Strength, Balance,Functional Mobility, Grooming,Dressing,Toileting, Bathing,Toilet Transfers, Shower Transfers,Activity Tolerance Progress Towards Goals Progressing Toward Goals Assessment Summary Pt able to walk to and from the [facility] today. Pt to be going to skilled rehab today and motivated to get better. Pt' sO2 at 1L initially dropped to 85% and able to recover within the minute to 93%. Goals Grooming Goal Independent Dressing Goal Independent,Plate Maker,Sock Aid Toileting Goal Minimal Assistance Bathing Goal Moderate Assistance Toilet Transfer Goal Independent Shower Transfer Goal Moderate Assistance Days to Meet Goals 30 Frequency of Treatment Frequency Of Treatment Once a Day Treatment Plan OT Treatment Plan ADL Training,Functional Mobility,Therapeutic Exercises ,Patient/Family Education, Discharge Planning Discharge Recommendations OT Discharge Recommendations SNF Rehab Transportation Needs at Discharge Wheelchair/Cabulance
[2020-08-07] MEDS: INSULIN LISPRO 100 UNIT/ML 3ML VIAL SUBCUT (12:25)
[2020-08-07] MEDS: CODEINE/GUAIFENESIN LIQUID 5ML UDC 10 ML PO (13:08)
--- NOTE | 2020-08-07 14:53 | PC.NURSE ---
Report called to Ryanne JOHNSON at [facility]. Patient left facility with all belongings and facility transport. Paperwork and prescriptions given to facility transport designee and patient given all medications that were stored in pharmacy.
--- NOTE | 2020-08-07 15:43 | CM.DPC ---
DCP/continued: Received referral from provider indicating patient medically stable for d/c today. Patient accepted at [facility]. Patient aware and agreeable with plan. Orders, PASRR, and copy of script faxed to [facility]. RN given number to call nursing report. No additional needs identified. Copy of ADAM provided to patient. Patient scheduled to be picked up at approximately 2:30pm with 02. P: [facility] today. JAMES Hassan
--- NOTE | 2020-08-07 17:49 | P.DS_ITS ---
History of Present Illness History of Present Illness Date Patient Seen: 08/07/20 Chief complaint: Weakness Narrative: Ms. Mayra Lara is a 69-year-old super morbidly obese female with a past medical history significant for COPD on home O2 at 3 liters/minute, congestive heart failure, SWATHI, type 2 diabetes with neuropathy, hypertension, hyperlipidemia, hiatal hernia, GERD, anxiety and depression presents to the ER with worsening cough and shortness of breath. The patient was seen [facility] for cough and shortness of breath and discharged to home. Today the patient feels that she is more short of breath with worsening cough and weakness precipitating 2 recent falls. The patient has a home health aide that will help her at home. She called 1 fire Department responded get her to the toilet and subsequently to the ER at [facility] for further evaluation. The patient states that she is on home oxygen at 3 liters/minute is not required increasing flow. She endorses a cough that has been present for 2 weeks. The patient denies fevers or chills, headaches or dizziness, has no nasal congestion or sore throat. She denies chest pain or palpitations. She has shortness of breath at rest with dry nonproductive. She denies abdominal pain, changes in bowel or bladder habits. Upon arrival to the ER the patient has a temperature 98.2?, heart rate of 104, blood pressure 121/76 with a respirations of 22 saturating 96% on 4 liters/minute of oxygen. A chest CT is obtained which finds no gross pulmonary embolism however notes an adequate enhancement of pulmonary arteries with severe respiratory motion artifact. Trace left pleural fluid, scattered fatigue dependent densities was probably left lower lobe please to be atelectasis and less likely pneumonia. On laboratory analysis the patient has white count of 13.2 with elevated neutrophils at 10,400, hemoglobin is 4 and hematocrit is 38.5 and platelets are 314. She has a PT of 13 1, INR 1 2 and a PTT of 37. On chemistry has an elevated potassium of 5.5 elevated BUN at 21 with a creatinine 0.79 with a BUN creatinine ratio of 26.6. Her nonfasting glucose is 133. Her magnesium is 1.3. She has a total CK of 103 with a CK-MB of 1.334 index of 1.3. Her troponin is less than 0.012. She has an elevated proBNP at 438. Her procalcitonin is 0.17. Her COVID screening is negative. The patient is admitted to the hospital for exacerbation COPD and acute bronchitis and generalized weakness unable to return safely to her home setting. Discharge Providers Provider Date of admission: 08/04/20 11:00 Discharge Date: 08/07/20 Consults: 08/03/20 21:50 Consult to Respiratory Therapy Evaluate & Treat Comment: Physician Instructions: Evaluate and treat 08/04/20 01:49 Consult to Dietitian, Adult Routine Comment: Reason For Exam: Super morbid obesity Consult to Discharge Planning Routine Comment: Consult to Occupational Therapy Evaluate & Treat Comment: Physician Instructions: Evaluate and treat Consult to Physical Therapy Evaluate & Treat Comment: Physician Instructions: Evaluate and Treat 08/04/20 03:11 Consult to SEMIAUTOMATIC TAPER OPERATOR - Time Study Technologist Routine Comment: BMI 61.3, self-care deficits, generalized weak SEMIAUTOMATIC TAPER OPERATOR Consult: [facility] Res Need Discharge provider: Melia Mcmanus MD Summary Hospital Course Discharge Diagnosis: Acute on chronic respiratory failure, secondary to COPD 2. Chronic cough 3. Hypo magnesemia 4. Generalized weakness 5. Type 2 diabetes 6. Chronic congestive heart failure, probably due to right heart failure, echocardiogram reveals EF of 60 65% 7. GERD 8. Morbid obesity 9. Diarrhea Hospital Course: Patient was admitted to the hospital and treated for acute on chronic hypoxic respiratory failure. She was given antibiotics and steroids. She had improvement of her breathing. She initially was on 3 L of oxygen and could be taper down to 1 L of oxygen. Patient was seen by physical therapy. She was markedly weak. She was deemed appropriate for transfer to retirement for ongoing care. Patient did develop diarrhea which was foul smelling but was C diff negative. Patient had a cortisol level that was low and was treated with steroids with improvement of her symptoms and improvement of her electrolytes. The patient will need an outpatient cortisol stimulation test for further evaluation for to rule out adrenal insufficiency. Patient made slow but steady progress and was deemed appropriate for discharge to retirement. Status at Discharge Cognitive/behavioral status at discharge: oriented Functional status at discharge: uses cane/walker Overall status at discharge: patient is not back to baseline Time Spent with Patient Time spent: Less than 30 minutes Exam Vital Signs (past 8 hours): - 08/07/20 12:00 08/07/20 13:54 08/07/20 14:20 Temperature 97.8 F 97.8 F Pulse Rate 79 78 78 Respiratory Rate 17 14 16 Blood Pressure 140/73 133/73 Pulse Oximetry 93 93 Oxygen Delivery Method Room Air Oxygen Flow Rate 0 Narrative Exam Narrative: Ill-appearing female lying in bed Lungs: Decreased breath sounds but clear to auscultation Cardiac exam: Regular rate and rhythm normal S1-S2 with a 2/6 systolic ejection Abdomen: Soft nontender nondistended Extremities: No edema Objective Labs Result Diagrams: 08/07/20 05:32 08/07/20 05:32 Labs: Laboratory Results - last 24 hr 08/07/20 08/07/20 08/07/20 05:32 05:32 11:05 WBC 11.7 H RBC 4.12 Hgb 12.3 Hct 37.2 MCV 90.2 MCH 29.9 MCHC 33.2 RDW 13.4 Plt Count 349 Neut % (Auto) 74.9 Lymph % (Auto) 14.4 L [place]hin % (Auto) 9.2 Eos % (Auto) 1.2 L Baso % (Auto) 0.3 Neut # (Auto) 8700 H Lymph # (Auto) 1700 [place] # (Auto) 1100 H Eos # (Auto) 100 Baso # (Auto) 0 Sodium 135 L Potassium 4.3 Chloride 98 Carbon Dioxide 35 H BUN 17 Creatinine 0.74 Estimated GFR > 60.0 BUN/Creatinine Ratio 23.0 H Glucose 126 H Calcium 9.2 Magnesium 1.6 SARS-CoV-2 (PCR) Negative [facility] Medical History Anxiety Asthma CHF (congestive heart failure) COPD (chronic obstructive pulmonary disease) Depression GERD (gastroesophageal reflux disease) Hiatal hernia Hyperlipidemia Hypertension Migraine Osteoarthritis Peripheral neuropathy Sleep apnea Type 2 diabetes mellitus Surgical History (Updated 08/04/20 @ 03:00 by NICOLAS Hernandez) No history of previous surgery Family History (Updated 08/04/20 @ 03:02 by NICOLAS Hernandez) Father Cardiovascular disease Mother CVA (cerebral vascular accident) Brother Sepsis Social History household members: family Smoking Status: Former smoker alcohol intake: never Discharge Assessment & Plan Assessment and Plan Assessment: Acute on chronic hypoxic respiratory failure COPD exacerbation Generalized weakness Chronic congestive heart failure, right heart failure, ejection fraction 60 65% Morbid obesity GERD Plan of Treatment: Transfer to [facility] for PT and OT Continue medications as prescribed Discharge Plan Discharge Plan Patient Disposition: SNF Transfer to: [facility] Consult as needed: Dental, Hearing, Mental health, Podiatry and Vision Discharge orders & Medications Prescriptions: New benzonatate 100 mg Capsule 100 mg PO TID PRN (Reason: Cough) Qty: 14 RF: 0 guaifenesin [Mucus Relief ER] 600 mg Tablet Extended Release 12hr 600 mg PO BID Qty: 14 RF: 0 hydrocodone-acetaminophen 5-325 mg tablet 1 tab PO Q4-6H PRN (Reason: pain) Qty: 20 RF: 0 prednisone 20 mg tablet 20 mg PO DAILY Qty: 14 RF: 0 codeine-guaifenesin 10-100 mg/5 mL liquid 10 ml PO Q4-6H PRN (Reason: cough) Qty: 118 RF: 0 Continued gabapentin 300 mg Capsule 300 mg PO BID RF: 0 atorvastatin 40 mg tablet 40 mg PO BEDTIME RF: 0 Lantus U-100 Insulin 100 unit/mL solution 60 unit SUBCUT BEDTIME RF: 0 hydrocodone-acetaminophen 5-325 mg tablet 1 - 2 tab PO Q6H PRN (Reason: Pain, Moderate) RF: 0 lisinopril 20 mg tablet 20 mg PO DAILY RF: 0 amlodipine 5 mg tablet 10 mg PO DAILY RF: 0 aspirin 81 mg Tablet,Delayed Release (Dr/Ec) 81 mg PO DAILY RF: 0 meclizine 25 mg tablet 25 mg PO TID PRN (Reason: Dizziness) RF: 0 benzonatate 100 mg Capsule 200 mg PO TID PRN (Reason: Cough) RF: 0 diphenhydramine HCl 25 mg Capsule 50 mg PO DAILY PRN (Reason: Itching) RF: 0 ascorbic acid (vitamin C) [Vitamin C] 500 mg Tablet,Chewable 500 mg PO DAILY RF: 0 omeprazole 20 mg capsule,delayed release(DR/EC) 20 mg PO DAILY RF: 0 montelukast 10 mg tablet 10 mg PO DAILY PRN (Reason: Allergy Symptoms) RF: 0 codeine-guaifenesin 10-100 mg/5 mL Liquid 5 - 10 ml PO Q4H PRN (Reason: Cough) RF: 0 furosemide 20 mg tablet 20 mg PO DAILY RF: 0 albuterol sulfate 90 mcg/actuation HFA aerosol inhaler 2 puff INHALATION QID PRN (Reason: Shortness Of Breath Or Wheezing) RF: 0 doxycycline hyclate 100 mg tablet 100 mg PO BID RF: 0 nortriptyline 50 mg capsule 100 mg PO BEDTIME RF: 0 duloxetine 60 mg capsule,delayed release(DR/EC) 60 mg PO DAILY RF: 0 budesonide-formoterol 80-4.5 mcg/actuation HFA aerosol inhaler 2 inh INHALATION BID RF: 0 Calcium + Vitamin D 600 mg/800 units tablet 600 mg PO DAILY RF: 0 insulin aspart U-100 [Novolog U-100 Insulin aspart] 100 unit/mL solution 10 sliding scale dose SUBCUT PC RF: 0 Discharge Health Status Multidrug resistant organism: No MDRO Diet/Activity/Treatments Diet: Carb-consistent/Diabetic and Low-sodium Liquid consistency: Normal/Thin Food texture: Regular Skin/Wound/Dressing Care Report to your healthcare provider any signs of infection, such as:: chills, fever Special Rehabilitation Services Reason for rehabilitation: Recovery r/t decondition Rehab type: Physical therapy and Occupational therapy Visit Report/Discharge Packet Instructions: Cough Quality VTE Deep Vein Thrombosis/Pulmonary Embolism Present on Admission: No
== END 2020-08-07 14:53 | DRG 190 ==
LOC: ED 08-04 00:43 → AC 08-04 00:59
PROVIDERS: Internal Medicine; Admitting Provider Nurse Practitioner Adult Health; Emergency Provider Emergency Medicine; Family Provider Physician Assistant; Visit Provider Nurse Practitioner Adult Health
DX: J44.1 Chronic obstructive pulmonary disease with (acute) exacerbation (principal); J96.22 Acute and chronic respiratory failure with hypercapnia; Z68.44 Body mass index [BMI] 60.0-69.9, adult; E87.2 Acidosis; R19.7 Diarrhea, unspecified; I50.812 Chronic right heart failure; I11.0 Hypertensive heart disease with heart failure; E83.42 Hypomagnesemia; E66.01 Morbid (severe) obesity due to excess calories; Z99.81 Dependence on supplemental oxygen; G47.33 Obstructive sleep apnea (adult) (pediatric); E11.40 Type 2 diabetes mellitus with diabetic neuropathy, unspecified; E78.5 Hyperlipidemia, unspecified; K21.9 Gastro-esophageal reflux disease without esophagitis; F41.9 Anxiety disorder, unspecified; F32.9 Major depressive disorder, single episode, unspecified; Z20.822 Contact with and (suspected) exposure to COVID-19; Z79.4 Long term (current) use of insulin
CPT/HCPCS: 36415; 71275; 80048; 80053; 80061; 82533; 82550; 82553; 82805; 82962; 83036; 83605; 83735; 83880; 84145; 84484; 85025; 85610; 85730; 87040; 87493; 87633; 87635; 93005; 94640; 94760; 94762; 97116; 97162; 97167; 97530; 97535; 99285; C9803; G0378; C9113; J1650; J1815; J1940; J3475; Q9967

== ENCOUNTER → 2020-09-14 11:44 | Outpatient (CLI) | payer MEDICARE, MEDICAID, SELFPAY ==
[2020-08-04 01:54] VITALS: BMI 62.4
--- NOTE | 2020-09-14 11:49 | DI.RAD.S_ITS ---
PROCEDURE: XR CHEST 2V INDICATIONS: COPD/INCREASE WBC TECHNIQUE: 2 views of the chest were acquired. COMPARISON: [facility], CHEST 2 VIEW, 10/26/2008, 18:12. [facility], CHEST 2 VIEW, 04/02/2007, 13:13. FINDINGS: Surgical changes and devices: None. Lungs and pleura: Lungs are difficult to accurately assess due to large body habitus and reduced inspiration. No definite acute disease. No pleural effusions or pneumothorax. Mediastinum: Mediastinal contours are normal. Heart size is normal. Bones and chest wall: No suspicious bony abnormalities. Soft tissues appear unremarkable. IMPRESSION: Limited evaluation due to large body habitus and reduced inspiratory volume. No pneumonia found. No definite acute disease seen. Noncontrast CT scanning may be warranted for more accurate assessment, however. Dictated by: Nehemiah Leon M.D. on 09/14/2020 at 13:01 Approved by: Nehemiah Leon M.D. on 09/14/2020 at 13:01
== END ==
PROVIDERS: Family Provider Physician Assistant; PCP Nurse Practitioner; Referring Provider Nurse Practitioner; Visit Provider Nurse Practitioner
DX: J44.9 Chronic obstructive pulmonary disease, unspecified (principal); D72.829 Elevated white blood cell count, unspecified
CPT/HCPCS: 71046

== ENCOUNTER → 2020-09-26 10:36 | Outpatient (CLI) | payer MEDICARE, MEDICAID, SELFPAY ==
[2020-08-04 01:54] VITALS: BMI 62.4
--- NOTE | 2020-09-26 10:42 | DI.RAD.S_ITS ---
PROCEDURE: XR HAND RT 2V INDICATIONS: RT HAND PAIN TECHNIQUE: 2 views of the hand(s) acquired. COMPARISON: None. FINDINGS: Bones: No fractures or dislocations. Carpal bones are normally aligned. No suspicious bony lesions. There is minimal 1st [facility] degenerative narrowing right Soft tissues: No suspicious soft tissue calcifications. IMPRESSION: Minimal 1st [facility] early arthritic narrowing. Dictated by: Brinda Minaya M.D. on 09/26/2020 at 12:21 Approved by: Brinda Minaya M.D. on 09/26/2020 at 12:21
== END ==
PROVIDERS: Family Provider Physician Assistant; PCP Nurse Practitioner; Referring Provider Nurse Practitioner; Visit Provider Nurse Practitioner
DX: M25.541 Pain in joints of right hand (principal)
CPT/HCPCS: 73120